=== PATIENT | male | born 1955 | race African-American/Black ===

== ENCOUNTER 2016-10-08 08:06 | Emergency (ER) | payer OTHER ==
[~2016-10-08] VITALS: Ht 182.9 cm; Wt 81.6 kg
[~2016-10-08 08:06] MED LIST: ALBUTEROL2.5 MG/3 M INH; AMLODIPINE BESY10 MG ORAL; CENTRUM SILVER1 EAC2 PO; DOCUSATE SODIU100 M2 ORAL; ELIQUIS5 MG PO; FLOVENT2 PUFF1 INH; HYDROCHLOROTHIA25 MG ORAL; LASIX40 MG ORAL; LISINOPRIL20 MG ORAL; PLAQUENIL200 MG ORAL; PROCARDIA XL60 MG ORAL
[2016-10-08] MEDS ORDERED: METOPROLOL SUCC50 MG ORAL (09:07)
[2016-10-08] MEDS ORDERED: TAMSULOSIN HCL0.4 MG ORAL (09:07)
[2016-10-08] MEDS ORDERED: LASIX20 M1 ORAL (09:07)
[2016-10-08] MEDS ORDERED: LISINOPRIL10 MG ORAL (09:07)
[2016-10-08] MEDS ORDERED: DuoNeb 0.5-3(2.5)mg/3ml neb HHN ONE (09:15)
[2016-10-08] MEDS ORDERED: Nitroglycerin Subl 0.4mg tab (Bottle Of 25) SL ONE (09:15)
[2016-10-08 09:41] VITALS: BP 135/89
[2016-10-08 09:50] LABS: BASOPHILS % (AUTO) 0.6 % (0.0-2.0); EOSINOPHILS % (AUTO) 2.5 % (0.0-3.0); LYMPHOCYTES % (AUTO) 16.7 % (20.0-45.0); MEAN CORPUSCULAR HEMOGLOBIN 34.8 PG (27.0-31.0); MEAN CORPUSCULAR HGB CONC 32.3 G/DL (32.0-36.0); MEAN CORPUSCULAR VOLUME 108 FL (80-99); MEAN PLATELET VOLUME 6.8 FL (6.5-10.1); MONOCYTES % (AUTO) 9.9 % (1.0-10.0); NEUTROPHILS % (AUTO) 70.3 % (45.0-75.0); PLATELET COUNT 192 K/UL (150-450); RED BLOOD COUNT 4.65 M/UL (4.70-6.10); RED CELL DISTRIBUTION WIDTH 12.7 % (11.6-14.8); WHITE BLOOD COUNT 8.1 K/UL (4.8-10.8)
[2016-10-08 10:03] LABS: ALANINE AMINOTRANSFERASE 71 U/L (3-41); ALBUMIN/GLOBULIN RATIO 1.3 (1.0-2.7); ANION GAP 16 (5-15); ASPARTATE AMINO TRANSFERASE 81 U/L (5-40); CALCIUM 9.8 mg/dL (8.6-10.2); CARBON DIOXIDE 24 mEQ/L (20-30); CHLORIDE 101 mEQ/L (98-107); CREATININE 1.2 mg/dL (0.7-1.2); GLOMERULAR FILTRATION RATE > 60 mL/min (>60); HEMOLYSIS 7; POTASSIUM 3.8 mEQ/L (3.4-4.9); SODIUM 141 mEQ/L (135-145); TOTAL PROTEIN 6.9 g/dL (6.6-8.7); TROPONIN I < 0.30 ng/mL (<=0.30)
[2016-10-08 10:07] LABS: APPEARANCE,URINE CLEAR; KETONES,URINE NEGATIVE (NEGATIVE); LEUKOCYTE ESTERASE ,URINE NEGATIVE (NEGATIVE); NITRITE,URINE NEGATIVE (NEGATIVE); PH,URINE 5 (4.5-8.0); PROTEIN,URINE NEGATIVE (NEGATIVE); UROBILINOGEN,URINE NORMAL MG/DL (0.0-1.0)
[2016-10-08 10:09] LABS: RBC,URINE 0-2 /HPF (0 - 0); SQUAMOUS EPITHELIAL CELL,UR OCCASIONAL /LPF (NONE/OCC); WBC,URINE 0-2 /HPF (0 - 0)
[2016-10-08 10:10] LABS: BACTERIA,URINE OCCASIONAL /HPF
--- NOTE | 2016-10-08 10:32 | Emergency Room Report ---
History of Present Illness General Chief Complaint: Dyspnea/Respdistress Source: Patient Present Illness HPI Patient is a 61-year-old male who presented for increased shortness of breath. The patient prior history of congestive heart failure he is currently taking Lasix as well as hydrochlorothiazide. He is taking Elliquis for anticoagulation. The patient had increased difficulty with exertion. He reported having increased shortness of breath when climbing up stairs as well as with supine position. Patient stated that he needed to sleep upright. The patient is a former smoker he stated he quit approximately 8 or 9 months ago. He denies any fever. Allergies: Coded Allergies: No Known Allergies (Unverified , 07/15/16) Patient History Past Medical History: see triage record Reviewed Nursing Documentation: PMH: Agreed, PSxH: Agreed Nursing Documentation-PMH Past Medical History: No History, Except For Hx Cardiac Problems: Yes Hx Hypertension: Yes Hx Pacemaker: No Hx Asthma: Yes Hx COPD: No Hx Cancer: No Hx Gastrointestinal Problems: No Hx Neurological Problems: No Review of Systems All Other Systems: negative except mentioned in HPI Physical Exam Vital Signs Date Time Temp Pulse Resp B/P Pulse Ox O2 Delivery O2 Flow Rate FiO2 10/08/16 08:27 93 18 135/102 100 Room Air 10/08/16 09:24 21 Sp02 EP Interpretation: reviewed, normal General Appearance: normal inspection, well appearing, no apparent distress, alert Head: atraumatic ENT: normal ENT inspection, hearing grossly normal, normal voice Neck: normal inspection, full range of motion, supple, no bony tend Respiratory: normal inspection, lungs clear, normal breath sounds, no respiratory distress, no retraction, no wheezing Cardiovascular #1: regular rate, rhythm, no edema Gastrointestinal: normal inspection, normal bowel sounds, non tender, soft, no guarding, no hernia Genitourinary: no CVA tenderness Musculoskeletal: normal inspection, back normal, normal range of motion Neurologic: normal inspection, alert, oriented x3, responsive, 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 Because of complexity of patient' s case laboratory testing and imaging studies were ordered. EKG interpreted by me showed atrial fibrillation with a rate of [address] changes noted. Patient was given IV Lasix. He was given a breathing treatment with albuterol and Atrovent. The patient appears to have some worsening of his congestive heart failure. Laboratory testing was notable for a markedly elevated BNP, troponin negative. The patient and significant other were advised risk benefits alternatives of leaving AGAINST MEDICAL ADVICE and he indicated understanding and all questions are answered patient still continued want to leave and signed AGAINST MEDICAL ADVICE. Despite risks including but not limited to disability and worsening of current lifestyle. Patient was advised to return at anytime.The patient appears to have mental capacity to go AGAINST MEDICAL ADVICE Labs Test 10/08/16 09:30 White Blood Count 8.1 K/UL (4.8-10.8) Red Blood Count 4.65 M/UL (4.70-6.10) Hemoglobin 16.2 G/DL (14.2-18.0) Hematocrit 50.1 % (42.0-52.0) Mean Corpuscular Volume 108 FL (80-99) Mean Corpuscular Hemoglobin 34.8 PG (27.0-31.0) Mean Corpuscular Hemoglobin Concent 32.3 G/DL (32.0-36.0) Red Cell Distribution Width 12.7 % (11.6-14.8) Platelet Count 192 K/UL (150-450) Mean Platelet Volume 6.8 FL (6.5-10.1) Neutrophils (%) (Auto) 70.3 % (45.0-75.0) Lymphocytes (%) (Auto) 16.7 % (20.0-45.0) Monocytes (%) (Auto) 9.9 % (1.0-10.0) Eosinophils (%) (Auto) 2.5 % (0.0-3.0) Basophils (%) (Auto) 0.6 % (0.0-2.0) Urine Color Pale yellow Urine Appearance Clear Urine pH 5 (4.5-8.0) Urine Specific [place] 1.010 (1.005-1.035) Urine Protein Negative (NEGATIVE) Urine Glucose (UA) Negative (NEGATIVE) Urine Ketones Negative (NEGATIVE) Urine Occult Blood Negative (NEGATIVE) Urine Nitrite Negative (NEGATIVE) Urine Bilirubin Negative (NEGATIVE) Urine Urobilinogen Normal MG/DL (0.0-1.0) Urine Leukocyte Esterase Negative (NEGATIVE) Urine RBC 0-2 /HPF (0 - 0) Urine WBC 0-2 /HPF (0 - 0) Urine Squamous Epithelial Cells Occasional /LPF Urine Bacteria Occasional /HPF (NONE) Sodium Level 141 mEQ/L (135-145) Potassium Level 3.8 mEQ/L (3.4-4.9) Chloride Level 101 mEQ/L (98-107) Carbon Dioxide Level 24 mEQ/L (20-30) Anion Gap 16 (5-15) Blood Urea Nitrogen 17 mg/dL (7-23) Creatinine 1.2 mg/dL (0.7-1.2) Estimat Glomerular Filtration Rate > 60 mL/min (>60) Glucose Level 94 mg/dL (74-106) Calcium Level 9.8 mg/dL (8.6-10.2) Total Bilirubin 0.9 mg/dL (0.0-1.2) Aspartate Amino Transf (AST/SGOT) 81 U/L (5-40) Alanine Aminotransferase (ALT/SGPT) 71 U/L (3-41) Alkaline Phosphatase 65 U/L (40-129) Troponin I < 0.30 ng/mL (<=0.30) Pro-B-Type Natriuretic Peptide 3436 pg/mL (0-125) Total Protein 6.9 g/dL (6.6-8.7) Albumin 3.9 g/dL (3.5-5.2) Globulin 3.0 g/dL Albumin/Globulin Ratio 1.3 (1.0-2.7) EKG Diagnostic Results Rate: other - afib nvr pvc 97 Rhythm Strip Diag. Results EP Interpretation: yes Rhythm: other - atrial fibrillation, 97 Chest X-Ray Diagnostic Results EP Interpretation: No Findings: no consolidation, no effusion, no pneumothorax Number of Views: 1 Last Vital Signs Date Time Temp Pulse Resp B/P Pulse Ox O2 Delivery O2 Flow Rate FiO2 10/08/16 09:41 87 19 135/89 100 Room Air 21 Status: unchanged Disposition: AGAINST MEDICAL ADVICE Condition: Serious Referrals: NON PHYSICIAN (PCP) Dino Almanzar Oct 08, 2016 10:32
--- NOTE | 2016-10-08 11:29 | Diagnostic Imaging Report ---
Indications: Shortness of breath and cough Technique: Portable AP chest Findings: Comparison: 07/16/16 Cardiac silhouette remains enlarged. Pulmonary vasculature remains within normal limits. Lungs and pleura remain clear. IMPRESSION: No evidence of acute disease, unchanged Stable chronic changes as described
[2016-10-08 12:55] VITALS: BP 130/80
--- NOTE | 2016-11-06 15:41 | Cardiology Report ---
APPROVED REPORT EKG Measurement Heart [id number] Atrial fibrillation Moderate voltage criteria for LVH, may be normal variant Prolonged QT Abnormal ECG
== END 2016-10-08 12:59 | disposition left against medical advice (07) ==
LOC: EMR 09:04
DX: J44.9 Chronic obstructive pulmonary disease, unspecified (principal); I50.9 Heart failure, unspecified; I10 Essential (primary) hypertension; J45.909 Unspecified asthma, uncomplicated; Z79.01 Long term (current) use of anticoagulants; Z87.891 Personal history of nicotine dependence
CPT/HCPCS: 36415; 71010; 80053; 81001; 83880; 84484; 85025; 93005; 94640; 94664; 99283; J7620

== ENCOUNTER 2016-12-31 09:37 | Inpatient (IN) | payer OTHER ==
[~2016-12-31] VITALS: Ht 175.3 cm; Wt 82.6 kg
[2016-12-31] VITALS (7 sets, daily range): BP systolic 109–143; BP diastolic 62–90
[~2016-12-31 09:37] MED LIST changes: +LASIX20 M1 ORAL; +LISINOPRIL10 MG ORAL; +METOPROLOL SUCC50 MG ORAL; +TAMSULOSIN HCL0.4 MG ORAL
[2016-12-31] MEDS ORDERED: Albuterol ud Inhalation ONE ×2 (09:55)
[2016-12-31] MEDS ORDERED: Ipratropium 0.02% Inh Soln 2.5ml UD ONE (09:55)
[2016-12-31] MEDS: Albuterol ud Inhalation HHN SCH ×3 (10:00→13:43)
[2016-12-31] MEDS ORDERED: Solu-MEDROL 125mg Inj IVP ONE (10:00)
[2016-12-31] MEDS ORDERED: Ipratropium 0.02% Inh Soln 2.5ml UD HHN ONE (10:00)
[2016-12-31 10:13] LABS: BASOPHILS % (AUTO) 1.8 % (0.0-2.0); EOSINOPHILS % (AUTO) 2.1 % (0.0-3.0); LYMPHOCYTES % (AUTO) 25.3 % (20.0-45.0); MEAN CORPUSCULAR HEMOGLOBIN 35.3 PG (27.0-31.0); MEAN CORPUSCULAR VOLUME 107 FL (80-99); MEAN PLATELET VOLUME 8.2 FL (6.5-10.1); MONOCYTES % (AUTO) 9.4 % (1.0-10.0); NEUTROPHILS % (AUTO) 61.3 % (45.0-75.0); PLATELET COUNT 163 K/UL (150-450); RED CELL DISTRIBUTION WIDTH 12.2 % (11.6-14.8); WHITE BLOOD COUNT 6.6 K/UL (4.8-10.8)
[2016-12-31 10:19] LABS: INR 1.3 (0.9-1.1); PROTHROMBIN TIME 13.7 SEC (9.30-11.50)
[2016-12-31 10:25] LABS: ALANINE AMINOTRANSFERASE 39 U/L (3-41); ALBUMIN/GLOBULIN RATIO 1.8 (1.0-2.7); ANION GAP 15 (5-15); ASPARTATE AMINO TRANSFERASE 44 U/L (5-40); CALCIUM 9.7 mg/dL (8.6-10.2); CARBON DIOXIDE 27 mEQ/L (20-30); CHLORIDE 100 mEQ/L (98-107); CREATININE 1.2 mg/dL (0.7-1.2); GLOMERULAR FILTRATION RATE > 60 mL/min (>60); HEMOLYSIS 16; POTASSIUM 4.3 mEQ/L (3.4-4.9); SODIUM 142 mEQ/L (135-145); TOTAL PROTEIN 6.8 g/dL (6.6-8.7)
[2016-12-31 10:28] LABS: TROPONIN I < 0.30 ng/mL (<=0.30)
[2016-12-31 10:46] LABS: BILIRUBIN,DIRECT 0.4 mg/dL (0.1-0.3)
[2016-12-31] MEDS ORDERED: LISINOPRIL20 MG ORAL (10:46)
[2016-12-31] MEDS ORDERED: ZANTAC150 MG ORAL (10:46)
[2016-12-31 11:20] LABS: APPEARANCE,URINE CLEAR; KETONES,URINE NEGATIVE (NEGATIVE); LEUKOCYTE ESTERASE ,URINE NEGATIVE (NEGATIVE); NITRITE,URINE NEGATIVE (NEGATIVE); PH,URINE 6 (4.5-8.0); PROTEIN,URINE NEGATIVE (NEGATIVE); UROBILINOGEN,URINE NORMAL MG/DL (0.0-1.0)
--- NOTE | 2016-12-31 12:11 | Diagnostic Imaging Report ---
Indications: Shortness of breath Technique: Portable AP chest Findings: Comparison: 10/08/16 Cardiac silhouette remains enlarged. Pulmonary vasculature remains within normal limits. Lungs and pleura remain clear. Mild calcification of the aortic arch is unchanged. IMPRESSION: No evidence of acute disease, unchanged Stable cardiomegaly
[2016-12-31] MEDS ORDERED: Morphine Sulfate 2mg/ml Inj IVP PRN (13:45)
[2016-12-31] MEDS ORDERED: Promethazine/Codeine 5ml UD ORAL PRN (13:45)
[2016-12-31] MEDS ORDERED: LORazepam Inj 2mg/ml 1ml IV PRN (13:45)
[2016-12-31] MEDS ORDERED: Nitroglycerin Subl 0.4mg tab (Bottle Of 25) SL PRN (13:45)
--- NOTE | 2016-12-31 14:47 | Emergency Room Report ---
History of Present Illness General Chief Complaint: Dyspnea/Respdistress Source: Patient Present Illness HPI The patient presents with severe dyspnea. It's been worsening over the last 3 weeks. Denies any productive cough fever. He has 2 problems CHF and COPD. He' s not sure which one is causing the problem at this time. He does have edema. He's been taking Lasix. He denies chest pain or abdominal pain. Supple vomiting and is moving his bowels without trouble. There's no dysuria. No rashes. Is not taking prednisone at this time. This is not his worst attack that is one of the most severe. He is on home oxygen and does not have a nebulizer. She's been using an inhaler but ran out and is it's not been helping. Allergies: Coded Allergies: No Known Allergies (Unverified , 07/15/16) Patient History Past Medical History: see triage record Social History: Reports: smoking - prior Social History Narrative at home Reviewed Nursing Documentation: PMH: Agreed, PSxH: Agreed Nursing Documentation-PMH Past Medical History: No History, Except For Hx Cardiac Problems: Yes Hx Hypertension: Yes Hx Pacemaker: No Hx Asthma: Yes Hx COPD: No Hx Cancer: No Hx Gastrointestinal Problems: No Hx Neurological Problems: No Review of Systems All Other Systems: negative except mentioned in HPI Physical Exam Vital Signs Date Time Temp Pulse Resp B/P Pulse Ox O2 Delivery O2 Flow Rate FiO2 12/31/16 09:41 97.2 77 24 156/111 96 Room Air 12/31/16 10:00 21 Sp02 EP Interpretation: reviewed, normal General Appearance: normal inspection, GCS 15, non-toxic, mild distress - when ambulating to [facility] - audible wheezes at bedside Head: normocephalic Eyes: bilateral eye PERRL, bilateral eye normal inspection ENT: moist mucus membranes Neck: supple Respiratory: accessory muscle use - minimal, wheezing, expiration, inspiration Cardiovascular #1: regular rate, rhythm, edema - trace Cardiovascular #2: 2+ radial (R) Gastrointestinal: normal inspection, normal bowel sounds, non tender, no mass, non-distended Musculoskeletal: back normal, gait/station normal, normal range of motion Neurologic: alert, oriented x3, grossly normal Psychiatric: mood/affect normal Skin: normal inspection, warm/dry Medical Decision Making Diagnostic Impression: Primary Impression: COPD exacerbation ER Course Patient presents with severe dyspnea on exertion. Differential includes COPD exacerbation, pneumonia, bronchitis, acute myocardial infarction, acute coronary syndrome amongst others. Emergent evaluation is undertaken with labs, EKG, chest x-ray. The patient will be treated with slight Medrol, breathing treatments and as he has a history of congestive heart failure will hold off on aggressive hydration and moment. Laboratory is remarkable for EKG with a fib. He has polycythemia. Mild elevation of LFTs and BNP. Improved but still extreme dyspnea on exertion. Admit tele Dr. Scruggs. Laboratory Tests Test 12/31/16 09:45 12/31/16 09:55 12/31/16 09:58 Urine Color Pale yellow Urine Appearance Clear Urine pH 6 (4.5-8.0) Urine Specific [place] 1.010 (1.005-1.035) Urine Protein Negative (NEGATIVE) Urine Glucose (UA) Negative (NEGATIVE) Urine Ketones Negative (NEGATIVE) Urine Occult Blood Negative (NEGATIVE) Urine Nitrite Negative (NEGATIVE) Urine Bilirubin Negative (NEGATIVE) Urine Urobilinogen Normal MG/DL (0.0-1.0) Urine Leukocyte Esterase Negative (NEGATIVE) Troponin I < 0.30 ng/mL (<=0.30) White Blood Count 6.6 K/UL (4.8-10.8) Red Blood Count 5.20 M/UL (4.70-6.10) Hemoglobin 18.3 G/DL (14.2-18.0) *H Hematocrit 55.7 % (42.0-52.0) H Mean Corpuscular Volume 107 FL (80-99) H Mean Corpuscular Hemoglobin 35.3 PG (27.0-31.0) H Mean Corpuscular Hemoglobin Concent 33.0 G/DL (32.0-36.0) Red Cell Distribution Width 12.2 % (11.6-14.8) Platelet Count 163 K/UL (150-450) Mean Platelet Volume 8.2 FL (6.5-10.1) Neutrophils (%) (Auto) 61.3 % (45.0-75.0) Lymphocytes (%) (Auto) 25.3 % (20.0-45.0) Monocytes (%) (Auto) 9.4 % (1.0-10.0) Eosinophils (%) (Auto) 2.1 % (0.0-3.0) Basophils (%) (Auto) 1.8 % (0.0-2.0) Prothrombin Time 13.7 SEC (9.30-11.50) H Prothrombin Time INR 1.3 (0.9-1.1) H PTT 31 SEC (23-33) Sodium Level 142 mEQ/L (135-145) Potassium Level 4.3 mEQ/L (3.4-4.9) Chloride Level 100 mEQ/L (98-107) Carbon Dioxide Level 27 mEQ/L (20-30) Anion Gap 15 (5-15) Blood Urea Nitrogen 19 mg/dL (7-23) Creatinine 1.2 mg/dL (0.7-1.2) Estimate Glomerular Filtration Rate > 60 mL/min (>60) Glucose Level 83 mg/dL (74-106) Lactic Acid Level 1.60 mmol/L (0.66-2.22) Calcium Level 9.7 mg/dL (8.6-10.2) Total Bilirubin 1.3 mg/dL (0.0-1.2) H Direct Bilirubin 0.4 mg/dL (0.1-0.3) H Aspartate Amino Transferase (AST) 44 U/L (5-40) H Alanine Aminotransferase (ALT) 39 U/L (3-41) Alkaline Phosphatase 66 U/L (40-129) Total Creatine Kinase 181 U/L (38-174) H Pro-B-Type Natriuretic Peptide 6690 pg/mL (0-125) H Total Protein 6.8 g/dL (6.6-8.7) Albumin 4.4 g/dL (3.5-5.2) Globulin 2.4 g/dL Albumin/Globulin Ratio 1.8 (1.0-2.7) EKG Diagnostic Results Rate: normal Rhythm: other - a fib with aberancy Rhythm Strip Diag. Results EP Interpretation: yes Rhythm: other - a f Chest X-Ray Diagnostic Results EP Interpretation: Yes Findings: no consolidation, no effusion, no pneumothorax, other - cardiomegally Number of Views: 1 Last Vital Signs Date Time Temp Pulse Resp B/P Pulse Ox O2 Delivery O2 Flow Rate FiO2 12/31/16 13:45 99 12/31/16 13:43 93 18 96 Room Air 12/31/16 11:51 97.7 143/70 Status: improved Disposition: ADMITTED INPATIENT Condition: Serious Referrals: [facility],REFERRING (PCP) Broderick Reyes M.D. Dec 31, 2016 14:47
[2016-12-31] MEDS: Solu-MEDROL 125mg Inj IV SCH (17:05)
[2016-12-31] MEDS: Piperacillin/Tazobactam 3.375 GM in NS 110 ML IVPB SCH (17:05)
[2016-12-31] MEDS: Lisinopril 20mg tab ORAL SCH (17:06)
[2016-12-31] MEDS: Eliquis 2.5mg tablet ORAL SCH (17:06)
[2016-12-31] MEDS: NovoLOG Insulin Flexpen SUBQ SCH ×2 (17:13→21:11)
--- NOTE | 2016-12-31 19:38 | History and Physical ---
History of Present Illness General Date patient seen: Dec 31, 2016 Reason for Hospitalization: Dyspnea/Respdistress Present Illness HPI 61 year old male with hx of COPD, afib, cardiomegaly presented to ER with CC of Shortness of breath worse when laying down. Pt has some dry cough. No fever or chill or flu symptoms recently. Allergies: Coded Allergies: No Known Allergies (Unverified , 07/15/16) Medication History Scheduled Amlodipine Besylate* (Amlodipine Besylate*), 10 MG ORAL DAILY, (Reported) Apixaban (Eliquis), 5 MG PO EVERY 12 HOURS Docusate Sodium (Docusate Sodium), 250 MG ORAL TWICE A DAY, (Reported) Fluticasone Propionate (Flovent Hfa), 2 PUFFS INH BID, (Reported) Furosemide* (Lasix*), 40 MG ORAL DAILY Furosemide* (Lasix*), 20 MG ORAL DAILY, (Reported) Hydrochlorothiazide* (Hydrochlorothiazide*), 25 MG ORAL DAILY, (Reported) Hydroxychloroquine Sulfate* (Plaquenil*), 200 MG ORAL TWICE A DAY, (Reported) Lisinopril (Lisinopril*), 20 MG ORAL DAILY Lisinopril (Lisinopril*), 10 MG ORAL DAILY, (Reported) Ranitidine Hcl* (Zantac*), 150 MG ORAL TWICE A DAY, (Reported) Tamsulosin Hcl (Tamsulosin Hcl*), 0.4 MG ORAL BEDTIME, (Reported) Scheduled PRN Albuterol Sulfate* (Albuterol Sulfate Hhn*), 3 ML INH Q6H PRN for Shortness of Breath, (Reported) Discontinued Medications Lisinopril* (Lisinopril*), 10 MG ORAL DAILY, (Reported) Discontinued Reason: Therapy completed Metoprolol Succinate* (Metoprolol Succinate*), 25 MG ORAL DAILY, (Reported) Discontinued Reason: Pt stopped taking med Multivitamin W-Minerals/Lutein (Centrum Silver Ultra Men's Tab), 1 EACH PO, ( Reported) Discontinued Reason: Therapy completed Nifedipine (Procardia Xl), 60 MG ORAL DAILY, (Reported) Discontinued Reason: Pt stopped taking med Patient History Healthcare decision maker Resuscitation status Advanced Directive on File No Past Medical/Surgical History Past Medical/Surgical History: (1) COPD exacerbation (2) Atrial fibrillation (3) Acute respiratory failure (4) History of smoking (5) HTN (hypertension) Review of Systems All Other Systems: negative except mentioned in HPI Physical Exam General Appearance: WD/WN, no apparent distress Lines, tubes and drains: peripheral HEENT: normocephalic Neck: non-tender, normal alignment Respiratory/Chest: chest wall non-tender, lungs clear Breasts: no masses Cardiovascular/Chest: normal peripheral pulses Abdomen: normal bowel sounds, non tender Genitourinary/Rectal: normal genital exam, normal rectal exam Extremities: normal range of motion, non-tender Skin Exam: normal pigmentation 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 Last 24 Hour Vital Signs Date Time Temp Pulse Resp B/P Pulse Ox O2 Delivery O2 Flow Rate FiO2 12/31/16 17:06 127/86 12/31/16 16:40 93 12/31/16 16:20 95.7 81 22 127/86 93 Room Air 12/31/16 16:07 94 18 109/60 99 Room Air 12/31/16 15:00 96.8 96 21 116/75 99 Room Air 12/31/16 14:00 95 22 109/62 95 Room Air 12/31/16 13:45 99 12/31/16 13:43 93 18 96 Room Air 21 12/31/16 11:51 97.7 91 17 143/70 96 Room Air 12/31/16 11:02 95 20 Room Air 99 12/31/16 11:01 97.0 95 20 122/89 96 Room Air 12/31/16 10:21 86 18 99 Room Air 99 12/31/16 10:20 86 18 100 Room Air 21 12/31/16 10:20 21 12/31/16 10:13 90 20 132/90 99 Room Air 12/31/16 10:13 90 24 Room Air 99 12/31/16 10:00 80 22 Room Air 21 12/31/16 10:00 80 22 96 Room Air 21 12/31/16 09:41 97.2 77 24 156/111 96 Room Air Laboratory Tests Test 12/31/16 09:45 12/31/16 09:55 12/31/16 09:58 Urine Color Pale yellow Urine Appearance Clear Urine pH 6 (4.5-8.0) Urine Specific [place] 1.010 (1.005-1.035) Urine Protein Negative (NEGATIVE) Urine Glucose (UA) Negative (NEGATIVE) Urine Ketones Negative (NEGATIVE) Urine Occult Blood Negative (NEGATIVE) Urine Nitrite Negative (NEGATIVE) Urine Bilirubin Negative (NEGATIVE) Urine Urobilinogen Normal MG/DL (0.0-1.0) Urine Leukocyte Esterase Negative (NEGATIVE) Troponin I < 0.30 ng/mL (<=0.30) White Blood Count 6.6 K/UL (4.8-10.8) Red Blood Count 5.20 M/UL (4.70-6.10) Hemoglobin 18.3 G/DL (14.2-18.0) *H Hematocrit 55.7 % (42.0-52.0) H Mean Corpuscular Volume 107 FL (80-99) H Mean Corpuscular Hemoglobin 35.3 PG (27.0-31.0) H Mean Corpuscular Hemoglobin Concent 33.0 G/DL (32.0-36.0) Red Cell Distribution Width 12.2 % (11.6-14.8) Platelet Count 163 K/UL (150-450) Mean Platelet Volume 8.2 FL (6.5-10.1) Neutrophils (%) (Auto) 61.3 % (45.0-75.0) Lymphocytes (%) (Auto) 25.3 % (20.0-45.0) Monocytes (%) (Auto) 9.4 % (1.0-10.0) Eosinophils (%) (Auto) 2.1 % (0.0-3.0) Basophils (%) (Auto) 1.8 % (0.0-2.0) Prothrombin Time 13.7 SEC (9.30-11.50) H Prothromb Time International Ratio 1.3 (0.9-1.1) H Activated Partial Thromboplast Time 31 SEC (23-33) Sodium Level 142 mEQ/L (135-145) Potassium Level 4.3 mEQ/L (3.4-4.9) Chloride Level 100 mEQ/L (98-107) Carbon Dioxide Level 27 mEQ/L (20-30) Anion Gap 15 (5-15) Blood Urea Nitrogen 19 mg/dL (7-23) Creatinine 1.2 mg/dL (0.7-1.2) Estimat Glomerular Filtration Rate > 60 mL/min (>60) Glucose Level 83 mg/dL (74-106) Lactic Acid Level 1.60 mmol/L (0.66-2.22) Calcium Level 9.7 mg/dL (8.6-10.2) Total Bilirubin 1.3 mg/dL (0.0-1.2) H Direct Bilirubin 0.4 mg/dL (0.1-0.3) H Aspartate Amino Transf (AST/SGOT) 44 U/L (5-40) H Alanine Aminotransferase (ALT/SGPT) 39 U/L (3-41) Alkaline Phosphatase 66 U/L (40-129) Total Creatine Kinase 181 U/L (38-174) H Pro-B-Type Natriuretic Peptide 6690 pg/mL (0-125) H Total Protein 6.8 g/dL (6.6-8.7) Albumin 4.4 g/dL (3.5-5.2) Globulin 2.4 g/dL Albumin/Globulin Ratio 1.8 (1.0-2.7) Height (Feet): 5 Height (Inches): 9.00 Weight (Pounds): 182 Medications Current Medications Medications (Trade) Dose Ordered Sig/Marlyn Route PRN Reason Start Time Stop Time Status Last Admin Dose Admin Albuterol/ Ipratropium (DuoNeb 0.5-3(2.5)mg/3ml) 3 ml EVERY 4 HOURS PRN HHN dyspnea 12/31/16 13:45 01/05/17 13:44 Amlodipine Besylate (Norvasc) 10 mg DAILY ORAL 01/01/17 09:00 01/31/17 08:59 Apixaban (Eliquis) 5 mg BID ORAL 12/31/16 18:00 01/30/17 17:59 12/31/16 17:06 Dextrose (Dextrose 50%) STAT PRN IV Hypoglycemia 12/31/16 13:45 01/30/17 13:44 Furosemide (Lasix) 40 mg DAILY ORAL 01/01/17 09:00 01/31/17 08:59 Insulin Aspart (NovoLOG) BEFORE MEALS AND HS SUBQ 12/31/16 17:00 01/30/17 16:59 12/31/16 17:13 Lisinopril (Prinivil) 20 mg DAILY ORAL 12/31/16 16:00 01/30/17 15:59 12/31/16 17:06 Lorazepam (Ativan 2mg/ml 1ml) 0.5 mg Q4H PRN IV For Anxiety 12/31/16 13:45 01/07/17 13:44 Methylprednisolone Sodium Succinate (Solu-MEDROL) 60 mg EVERY 6 HOURS IV 12/31/16 18:00 01/30/17 17:59 12/31/16 17:05 Morphine Sulfate (Morphine Sulfate) 2 mg EVERY 4 HOURS PRN IVP severe pain 7-10 12/31/16 13:45 01/07/17 13:44 Nitroglycerin (Ntg) 0.4 mg Q5M X 3 DOSES PRN SL Prn Chest Pain 12/31/16 13:45 01/30/17 13:44 Ondansetron HCl (Zofran) 4 mg Q6H PRN IVP Nausea & Vomiting 12/31/16 13:45 01/30/17 13:44 Piperacillin Sod/ Tazobactam Sod/ Sodium Chloride (Zosyn/Sodium Chloride) 110 ml @ 27.5 mls/hr Q8H IVPB 12/31/16 18:00 01/07/17 17:59 12/31/16 17:05 Promethazine HCl/ Codeine (Phenergan with Codeine) 5 ml EVERY 6 HOURS PRN ORAL cough 12/31/16 13:45 01/30/17 13:44 Tamsulosin HCl (Flomax) 0.4 mg BEDTIME ORAL 12/31/16 21:00 01/30/17 20:59 Temazepam (Restoril) 15 mg HSPRN PRN ORAL Insomnia 12/31/16 13:45 01/07/17 13:44 Theophylline 100 mg 100 mg EVERY 12 HOURS ORAL 12/31/16 21:00 01/30/17 20:59 Assessment/Plan Problem List: (1) Acute respiratory failure ICD Codes: J96.00 - Acute respiratory failure, unspecified whether with hypoxia or hypercapnia SNOMED: 82054606 (2) Acute on chronic diastolic heart failure secondary to hypertrophic cardiomyopathy ICD Codes: I50.33 - Acute on chronic diastolic (congestive) heart failure; I42.2 - Other hypertrophic cardiomyopathy SNOMED: 565978953, 679686634 (3) HTN (hypertension) ICD Codes: I10 - Essential (primary) hypertension SNOMED: 25059124 (4) Atrial fibrillation ICD Codes: I48.91 - Unspecified atrial fibrillation SNOMED: 91077762 (5) COPD (chronic obstructive pulmonary disease) ICD Codes: J44.9 - Chronic obstructive pulmonary disease, unspecified SNOMED: 43577449 Assessment/Plan respiratory treatment echo adjust cardiac meds cardio consult check sputum NANO POPE Dec 31, 2016 19:38
[2016-12-31] MEDS: Theophylline ER 100mg ORAL SCH (21:09)
[2016-12-31] MEDS: Tamsulosin 0.4mg cap ORAL SCH (21:09)
[2016-12-31] MEDS: DuoNeb 0.5-3(2.5)mg/3ml neb HHN PRN (21:39)
[2017-01-01 00:18] VITALS: BP 103/55
[2017-01-01] MEDS: Piperacillin/Tazobactam 3.375 GM in NS 110 ML IVPB SCH ×2 (01:33→09:00)
[2017-01-01 04:00] VITALS: BP 111/69
[2017-01-01] MEDS: Solu-MEDROL 125mg Inj IV SCH ×3 (06:35→11:23)
[2017-01-01] MEDS: NovoLOG Insulin Flexpen SUBQ SCH ×4 (06:37→21:11)
[2017-01-01 08:20] VITALS: BP 123/81
[2017-01-01] MEDS: Eliquis 2.5mg tablet ORAL SCH ×2 (08:55→17:13)
[2017-01-01] MEDS: Lisinopril 20mg tab ORAL SCH (08:56)
[2017-01-01] MEDS: Theophylline ER 100mg ORAL SCH ×2 (08:56→21:05)
[2017-01-01] MEDS ORDERED: Furosemide 40mg tab ORAL SCH ×2 (09:00→12:00)
--- NOTE | 2017-01-01 11:14 | Cardiology Progress Note ---
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 keep on eliquis Objective Last 24 Hour Vital Signs Date Time Temp Pulse Resp B/P Pulse Ox O2 Delivery O2 Flow Rate FiO2 01/01/17 08:56 123/81 01/01/17 08:55 109 123/81 01/01/17 08:20 97.0 109 18 123/81 98 Room Air 01/01/17 08:00 129 01/01/17 07:46 85 20 Room Air 01/01/17 04:00 86 01/01/17 04:00 97.0 70 20 111/69 94 Room Air 01/01/17 00:18 97.0 71 20 103/55 94 Room Air 01/01/17 00:00 83 12/31/16 21:43 69 18 98 Room Air 12/31/16 21:43 21 12/31/16 21:43 77 18 97 Room Air 21 12/31/16 20:26 107 20 Room Air 99 12/31/16 20:00 97.0 78 20 123/78 94 Room Air 12/31/16 17:06 127/86 12/31/16 16:40 93 12/31/16 16:20 95.7 81 22 127/86 93 Room Air 12/31/16 16:07 94 18 109/60 99 Room Air 12/31/16 15:00 96.8 96 21 116/75 99 Room Air 12/31/16 14:00 95 22 109/62 95 Room Air 12/31/16 13:45 99 12/31/16 13:43 93 18 96 Room Air 21 12/31/16 11:51 97.7 91 17 143/70 96 Room Air Intake and Output 12/31/16 01/01/17 19:00 07:00 Intake Total 387.5 ml 110.0 ml Output Total 1550 ml Balance 387.5 ml -1440.0 ml Intake Oral 360 ml IV Total 27.5 ml 110.0 ml Output Urine Total 1550 ml # Voids 2 2 JUDE NAVARRETE Jan 01, 2017 11:14
[2017-01-01 11:47] VITALS: BP 106/73
--- NOTE | 2017-01-01 12:54 | Pulmonology Progress Note ---
Assessment/Plan Problems: (1) Acute respiratory failure (2) Acute on chronic diastolic heart failure secondary to hypertrophic cardiomyopathy (3) HTN (hypertension) (4) Atrial fibrillation (5) COPD (chronic obstructive pulmonary disease) Assessment/Plan improving dc steroids and abx titrate cardiac meds f/u echo continue Apixiban Subjective ROS Limited/Unobtainable: No Interval Events: feeling better Allergies: Coded Allergies: No Known Allergies (Unverified , 07/15/16) Objective Last 24 Hour Vital Signs Date Time Temp Pulse Resp B/P Pulse Ox O2 Delivery O2 Flow Rate FiO2 01/01/17 11:47 97.2 104 18 106/73 98 Room Air 01/01/17 08:56 123/81 01/01/17 08:55 109 123/81 01/01/17 08:20 97.0 109 18 123/81 98 Room Air 01/01/17 08:00 129 01/01/17 07:46 85 20 Room Air 01/01/17 04:00 86 01/01/17 04:00 97.0 70 20 111/69 94 Room Air 01/01/17 00:18 97.0 71 20 103/55 94 Room Air 01/01/17 00:00 83 12/31/16 21:43 69 18 98 Room Air 12/31/16 21:43 21 12/31/16 21:43 77 18 97 Room Air 21 12/31/16 20:26 107 20 Room Air 99 12/31/16 20:00 97.0 78 20 123/78 94 Room Air 12/31/16 17:06 127/86 12/31/16 16:40 93 12/31/16 16:20 95.7 81 22 127/86 93 Room Air 12/31/16 16:07 94 18 109/60 99 Room Air 12/31/16 15:00 96.8 96 21 116/75 99 Room Air 12/31/16 14:00 95 22 109/62 95 Room Air 12/31/16 13:45 99 12/31/16 13:43 93 18 96 Room Air 21 Intake and Output 12/31/16 01/01/17 19:00 07:00 Intake Total 387.5 ml 110.0 ml Output Total 1550 ml Balance 387.5 ml -1440.0 ml Intake Oral 360 ml IV Total 27.5 ml 110.0 ml Output Urine Total 1550 ml # Voids 2 2 General Appearance: WD/WN HEENT: normocephalic, atraumatic Respiratory/Chest: chest wall non-tender, lungs clear Cardiovascular: normal peripheral pulses, regular rhythm Abdomen: normal bowel sounds, soft, non tender Extremities: no cyanosis 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 Current Medications Medications (Trade) Dose Ordered Sig/Marlyn Route PRN Reason Start Time Stop Time Status Last Admin Dose Admin Albuterol/ Ipratropium (DuoNeb 0.5-3(2.5)mg/3ml) 3 ml EVERY 4 HOURS PRN HHN dyspnea 12/31/16 13:45 01/05/17 13:44 12/31/16 21:39 Apixaban (Eliquis) 5 mg BID ORAL 12/31/16 18:00 01/30/17 17:59 01/01/17 08:55 Dextrose (Dextrose 50%) STAT PRN IV Hypoglycemia 12/31/16 13:45 01/30/17 13:44 Diltiazem HCl (Cardizem) 30 mg EVERY 8 HOURS ORAL 01/01/17 14:00 01/31/17 13:59 Furosemide (Lasix) 40 mg DAILY ORAL 01/02/17 09:00 02/01/17 08:59 Insulin Aspart (NovoLOG) BEFORE MEALS AND HS SUBQ 12/31/16 17:00 01/30/17 16:59 01/01/17 11:26 Lisinopril (Zestril) 10 mg DAILY ORAL 01/02/17 09:00 02/01/17 08:59 Lorazepam (Ativan 2mg/ml 1ml) 0.5 mg Q4H PRN IV For Anxiety 12/31/16 13:45 01/07/17 13:44 Methylprednisolone Sodium Succinate (Solu-MEDROL) 60 mg EVERY 6 HOURS IV 12/31/16 18:00 01/30/17 17:59 01/01/17 11:23 Morphine Sulfate (Morphine Sulfate) 2 mg EVERY 4 HOURS PRN IVP severe pain 7-12/31/16 13:45 01/07/17 13:44 Nitroglycerin (Ntg) 0.4 mg Q5M X 3 DOSES PRN SL Prn Chest Pain 12/31/16 13:45 01/30/17 13:44 Ondansetron HCl (Zofran) 4 mg Q6H PRN IVP Nausea & Vomiting 12/31/16 13:45 01/30/17 13:44 Piperacillin Sod/ Tazobactam Sod/ Sodium Chloride (Zosyn/Sodium Chloride) 110 ml @ 27.5 mls/hr Q8H IVPB 12/31/16 18:00 01/07/17 17:59 01/01/17 09:00 Promethazine HCl/ Codeine (Phenergan with Codeine) 5 ml EVERY 6 HOURS PRN ORAL cough 12/31/16 13:45 01/30/17 13:44 Tamsulosin HCl (Flomax) 0.4 mg BEDTIME ORAL 12/31/16 21:00 01/30/17 20:59 12/31/16 21:09 Temazepam (Restoril) 15 mg HSPRN PRN ORAL Insomnia 12/31/16 13:45 01/07/17 13:44 01/01/17 01:34 Theophylline 100 mg 100 mg EVERY 12 HOURS ORAL 12/31/16 21:00 01/30/17 20:59 01/01/17 08:56 NANO POPE Jan 01, 2017 12:54
[2017-01-01 15:42] VITALS: BP 134/90
--- NOTE | 2017-01-01 16:26 | Cardiology Report ---
APPROVED REPORT EXAM: Two-dimensional and M-mode echocardiogram with Doppler and color Doppler. INDICATION Atrial Flutter M-Mode DIMENSIONS IVSd1.3 (0.7-1.1cm)Left Atrium (MM)6.1 (1.6-4.0cm) LVDd5.4 (3.5-5.6cm)Aortic Root3.7 (2.0-3.7cm) PWd1.6 (0.7-1.1cm)Aortic Cusp Exc.2.1 (1.5-2.0cm) LVDs5.1 (2.5-4.0cm) PWs1.7 cm Left ventricular chamber size at upper limits of normal. Global left ventricular hypokinesis. Septal akinesis. Left ventricular ejection fraction estimated to be 25-30 %. Mild left ventricular hypertrophy. No evidence of pericardial effusion. Severe bi- atrial enlargement. Right ventricular chamber size is within normal limits. Mild focal aortic valve sclerosis with adequate cusp excursion. Mildly thickened mitral valve leaflets with normal excursion. Mitral annulus and aortic root calcification. Pulmonic valve not well visualized. Normal tricuspid valve structure. IVC dilated at 2.7 cm and non-collapsing with respiration suggestive of increased RA pressure. A color flow and spectral Doppler study was performed and revealed: Mild aortic insufficiency. Moderate mitral regurgitation. Can not determine left ventricular diastolic function by mitral diastolic velocities due to atrial fibrillation. Moderate tricuspid regurgitation. Tricuspid systolic velocities suggests peak right ventricular systolic pressure of 50 mmHg, consistent with moderate pulmonary hypertension. Pulmonic regurgitation present.
[2017-01-01 20:00] VITALS: BP 111/78
--- NOTE | 2017-01-01 20:48 | Consultation ---
DATE OF CONSULTATION: 01/01/2017 CARDIOLOGY CONSULTATION CONSULTING PHYSICIAN: Toby Keenan M.D. REFERRING PHYSICIAN: Lisa Scruggs M.D. REASON FOR CONSULTATION: Atrial fibrillation. HISTORY OF PRESENT ILLNESS: This is a 61-year-old gentleman who has a history of atrial fibrillation "for most of his life." He presented to the hospital at [facility] because of shortness of breath on exertion and shortness of breath at rest. He uses about 2 to 6 pillows to sleep at night, but still feels that he cannot fall asleep. He is using some inhalers that have not been helpful for him. He has palpitations. He does not have any dizziness or lightheadedness. He has had very rare episodes of chest pain that are 1 or 2 seconds of sharp lancinating pain in duration, no other pains. PAST MEDICAL HISTORY: Positive for a history of systolic and diastolic heart failure, atrial fibrillation, hypertension, prostate cancer, COPD, polycythemia, and hematuria back in June 2016, at which time we started him on Eliquis, which he has apparently been continued since then. He was also on a course of beta-blockers to control his heart rate and at that time in June, he had a perfusion imaging that had shown the large fixed apical, anteroseptal, and inferoseptal perfusion defects consistent with a large infarction with ejection fraction of 26%. An echocardiogram also performed previously that showed global hypokinesis, but ejection fraction at that time was estimated by echo was 40% to 45%. No significant valvular lesions were noted. He does have history of high blood pressure. He does have a history of prostate cancer, was treated with radiation therapy. No hepatitis or tuberculosis. He does have COPD. No ulcers. No kidney problems, liver problems, thyroid problems, anemia, or arthritis. ALLERGIES: He is not allergic to any medications. SOCIAL HISTORY: He used to smoke for about 10 years and he quit that three years ago. No alcohol. No drugs. He used to work in the business of [employer]. REVIEW OF SYSTEMS: Gastrointestinal: Positive for both intermittent diarrhea and constipation. Genitourinary: Negative. Pulmonary: Positive for coughing and wheezing. Constitutional: No fever, chills, or night sweats Neurological: Negative. PHYSICAL EXAMINATION: GENERAL: A middle-aged gentleman, in no apparent respiratory distress. NECK: Supple. No jugular venous distention is noted. No abdominojugular reflux noted. LUNGS: Appeared to be relatively clear on the right side. Few crackles were noted on the left side. CARDIAC: Irregularly irregular. No RV lifts, heaves, or thrills are noted. ABDOMEN: His abdomen is soft and nontender. Positive bowel sounds. EXTREMITIES: There is no clubbing, cyanosis, nor is there any edema. NEUROLOGIC: He is awake, alert, responsive, in no apparent respiratory distress. LABORATORY VALUES: A chest x-ray performed in the emergency room yesterday shows no evidence of acute disease, stable cardiomegaly. Blood tests - white count of 6.6 with a hemoglobin of 18.3 and platelet count of 163. Sodium is 142, potassium 4.3, chloride 100, bicarbonate 27, BUN of 19, creatinine 1.2, and glucose of 83. Lactic acid of 1.6. Liver function tests are relatively normal. CK of 160. ProBNP of 6690. Troponin was less than 0.1 yesterday. His INR was 1.3 and PTT of 31. Urinalysis yesterday was fairly unremarkable. The EKG last night shows atrial fibrillation with ventricular response. It appears to be relatively controlled on one of the EKGs and higher on another EKG, some T-wave inversions in the lateral leads are noted, may be secondary to left ventricular hypertrophy, and our comparison with EKG from June 2016 really is unchanged. He did have telemetry, some wide complex tachycardia of short duration, may have been aberrant conduction. ASSESSMENT: 1. Permanent atrial fibrillation. 2. Acute on chronic systolic heart failure. 3. Ischemic cardiomyopathy, nonreversible. 4. Chronic obstructive pulmonary disease. 5. Hyperglycemia. 6. Wide complex tachycardia. 7. Polycythemia. RECOMMENDATION: Dr. Scruggs, this patient was seen in cardiac consultation. The patient will receive some diuretics for probable heart failure and continued treatment for underlying COPD. He should be continued on his Eliquis for stroke prevention. His blood pressure medication will need to be adjusted. He should be probably taken off of amlodipine and placed on Cardizem for blood pressure control. His lisinopril should be continued for his cardiomyopathy. If his COPD allows, at some point, he should be on some Coreg for his cardiomyopathy as well, and diuretics to be continued at home as well as in the hospital. Further recommendations depending on the results of the subsequent testing. Toby Keenan M.D. DR: JOSEPH JOB#: [id number] CC:
[2017-01-01] MEDS: Tamsulosin 0.4mg cap ORAL SCH (21:04)
[2017-01-01] MEDS: DuoNeb 0.5-3(2.5)mg/3ml neb HHN PRN (23:12)
[2017-01-02] VITALS (7 sets, daily range): BP systolic 109–149; BP diastolic 65–93
[2017-01-02] MEDS: NovoLOG Insulin Flexpen SUBQ SCH ×4 (06:37→21:00)
[2017-01-02 07:23] LABS: MEAN CORPUSCULAR HEMOGLOBIN 34.7 PG (27.0-31.0); MEAN CORPUSCULAR HGB CONC 32.3 G/DL (32.0-36.0); MEAN CORPUSCULAR VOLUME 108 FL (80-99); MEAN PLATELET VOLUME 8.2 FL (6.5-10.1); PLATELET COUNT 205 K/UL (150-450); RED BLOOD COUNT 4.94 M/UL (4.70-6.10); RED CELL DISTRIBUTION WIDTH 12.2 % (11.6-14.8); WHITE BLOOD COUNT 15.4 K/UL (4.8-10.8)
[2017-01-02 07:50] LABS: ALANINE AMINOTRANSFERASE 29 U/L (3-41); ALBUMIN/GLOBULIN RATIO 1.5 (1.0-2.7); ANION GAP 13 (5-15); ASPARTATE AMINO TRANSFERASE 28 U/L (5-40); CALCIUM 9.2 mg/dL (8.6-10.2); CARBON DIOXIDE 28 mEQ/L (20-30); CHLORIDE 99 mEQ/L (98-107); CREATININE 1.1 mg/dL (0.7-1.2); GLOMERULAR FILTRATION RATE > 60 mL/min (>60); HEMOLYSIS 9; POTASSIUM 4.4 mEQ/L (3.4-4.9); SODIUM 140 mEQ/L (135-145); TOTAL PROTEIN 6.1 g/dL (6.6-8.7)
[2017-01-02 07:53] LABS: BAND NEUTROPHILS % (MANUAL) 0 % (0-8); BASOPHILS % (MANUAL) 0 % (0-2); EOSINOPHILS % (MANUAL) 0 % (0-3); LYMPHOCYTES % (MANUAL) 6 % (20-45); MACROCYTES 1+; NEUTROPHILS % (MANUAL) 89 % (45-75); PLATELET ESTIMATE ADEQUATE; PLATELET MORPHOLOGY NORMAL; TOTAL CELLS COUNTED 100
[2017-01-02] MEDS: Lisinopril 10mg tab ORAL SCH (08:23)
[2017-01-02] MEDS: Eliquis 2.5mg tablet ORAL SCH ×2 (08:23→17:09)
[2017-01-02] MEDS: Theophylline ER 100mg ORAL SCH ×2 (08:23→21:00)
[2017-01-02] MEDS ORDERED: Furosemide 40mg tab ORAL SCH (09:00)
--- NOTE | 2017-01-02 11:19 | Diagnostic Imaging Report ---
Indication: DYSPNEA Technique: One view of the chest Comparison: none Findings: Please note that the date listed on the exam is incorrect. The correct date is 01/02/2017. The heart is enlarged. There is a questionable faint ovoid opacity at the right lung base. The remainder of the lungs and pleural spaces are clear. Impression: There are questionable right basilar opacity, if real could represent a faint patchy infiltrate No acute process otherwise and no significant change since 12/31/2016
--- NOTE | 2017-01-02 13:08 | Pulmonology Progress Note ---
Assessment/Plan Problems: (1) Acute respiratory failure (2) Acute on chronic diastolic heart failure secondary to hypertrophic cardiomyopathy (3) HTN (hypertension) (4) Atrial fibrillation (5) COPD (chronic obstructive pulmonary disease) Assessment/Plan improving dc steroids and abx titrate cardiac meds f/u echo continue Apixiban titrate cardiac meds/ cardio f/u of vtach this morning Subjective Interval Events: vtach 10 beats this morning Allergies: Coded Allergies: No Known Allergies (Unverified , 07/15/16) Objective Last 24 Hour Vital Signs Date Time Temp Pulse Resp B/P Pulse Ox O2 Delivery O2 Flow Rate FiO2 01/02/17 12:00 93 01/02/17 11:43 97.7 101 18 122/65 96 Room Air 01/02/17 08:23 130/81 01/02/17 08:00 91 01/02/17 07:54 97.0 90 18 111/91 96 Room Air 01/02/17 07:27 99 18 Room Air 01/02/17 06:36 96 126/68 01/02/17 04:00 97.2 85 20 124/66 96 01/02/17 04:00 85 01/02/17 00:00 105 01/02/17 00:00 98.0 109 18 109/75 97 Room Air 21 01/01/17 23:12 85 18 97 Room Air 01/01/17 23:12 21 01/01/17 23:12 83 18 95 Room Air 21 01/01/17 21:19 109 111/78 01/01/17 20:11 58 18 Room Air 01/01/17 20:00 100 01/01/17 20:00 97.5 109 20 111/78 96 Room Air 01/01/17 16:00 114 01/01/17 15:42 97.0 100 18 134/90 97 Room Air 01/01/17 14:14 109 106/73 Intake and Output 01/01/17 01/02/17 19:00 07:00 Intake Total 710.0 ml 240 ml Output Total 900 ml Balance -190.0 ml 240 ml Intake Oral 600 ml 240 ml IV Total 110.0 ml Output Urine Total 900 ml # Voids 1 General Appearance: WD/WN HEENT: normocephalic, atraumatic Respiratory/Chest: chest wall non-tender, lungs clear Cardiovascular: normal peripheral pulses, normal rate Abdomen: normal bowel sounds, soft, non tender Genitourinary: normal external genitalia Extremities: no cyanosis 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 Laboratory Tests 01/02/17 06:10: White Blood Count 15.4H, Red Blood Count 4.94, Hemoglobin 17.1, Hematocrit 53.1H , Mean Corpuscular Volume 108H, Mean Corpuscular Hemoglobin 34.7H, Mean Corpuscular Hemoglobin Concent 32.3, Red Cell Distribution Width 12.2, Platelet Count 205, Mean Platelet Volume 8.2, Neutrophils (%) (Auto) , Lymphocytes (%) ( Auto) , Monocytes (%) (Auto) , Eosinophils (%) (Auto) , Basophils (%) (Auto) , Differential Total Cells Counted 100, Neutrophils % (Manual) 89H, Lymphocytes % (Manual) 6L, Monocytes % (Manual) 5, Eosinophils % (Manual) 0, Basophils % ( Manual) 0, Band Neutrophils 0, Platelet Estimate Adequate, Platelet Morphology Normal, Macrocytosis 1+, Sodium Level 140, Potassium Level 4.4, Chloride Level 99, Carbon Dioxide Level 28, Anion Gap 13, Blood Urea Nitrogen 21, Creatinine 1.1, Estimat Glomerular Filtration Rate > 60, Glucose Level 120H, Calcium Level 9.2, Total Bilirubin 0.9, Aspartate Amino Transf (AST/SGOT) 28, Alanine Aminotransferase (ALT/SGPT) 29, Alkaline Phosphatase 74, Pro-B-Type Natriuretic Peptide 2247H, Total Protein 6.1L, Albumin 3.7, Globulin 2.4, Albumin/Globulin Ratio 1.5, Free Prostate Specific Antigen [Pending], Percent Free Prostate Specific Ag [Pending], Prostate Specific Antigen Total [Pending] Current Medications Medications (Trade) Dose Ordered Sig/Marlyn Route PRN Reason Start Time Stop Time Status Last Admin Dose Admin Albuterol/ Ipratropium (DuoNeb 0.5-3(2.5)mg/3ml) 3 ml EVERY 4 HOURS PRN HHN dyspnea 12/31/16 13:45 01/05/17 13:44 01/01/17 23:12 Apixaban (Eliquis) 5 mg BID ORAL 12/31/16 18:00 01/30/17 17:59 01/02/17 08:23 Dextrose (Dextrose 50%) STAT PRN IV Hypoglycemia 12/31/16 13:45 01/30/17 13:44 Diltiazem HCl (Cardizem) 30 mg EVERY 8 HOURS ORAL 01/01/17 14:00 01/31/17 13:59 01/02/17 06:36 Furosemide (Lasix) 40 mg DAILY ORAL 01/02/17 09:00 02/01/17 08:59 01/02/17 08:23 Insulin Aspart (NovoLOG) BEFORE MEALS AND HS SUBQ 12/31/16 17:00 01/30/17 16:59 01/02/17 06:37 Lisinopril (Zestril) 10 mg DAILY ORAL 01/02/17 09:00 02/01/17 08:59 01/02/17 08:23 Lorazepam (Ativan 2mg/ml 1ml) 0.5 mg Q4H PRN IV For Anxiety 12/31/16 13:45 01/07/17 13:44 Morphine Sulfate (Morphine Sulfate) 2 mg EVERY 4 HOURS PRN IVP severe pain 712/31/16 13:45 01/07/17 13:44 Nitroglycerin (Ntg) 0.4 mg Q5M X 3 DOSES PRN SL Prn Chest Pain 12/31/16 13:45 01/30/17 13:44 Ondansetron HCl (Zofran) 4 mg Q6H PRN IVP Nausea & Vomiting 12/31/16 13:45 01/30/17 13:44 Promethazine HCl/ Codeine (Phenergan with Codeine) 5 ml EVERY 6 HOURS PRN ORAL cough 12/31/16 13:45 01/30/17 13:44 Tamsulosin HCl (Flomax) 0.4 mg BEDTIME ORAL 12/31/16 21:00 01/30/17 20:59 01/01/17 21:04 Temazepam (Restoril) 15 mg HSPRN PRN ORAL Insomnia 12/31/16 13:45 01/07/17 13:44 01/01/17 01:34 Theophylline (Severino-Dur) 100 mg EVERY 12 HOURS ORAL 12/31/16 21:00 01/30/17 20:59 01/02/17 08:23 NANO POPE Jan 02, 2017 13:08
--- NOTE | 2017-01-02 15:29 | Cardiology Report ---
APPROVED REPORT EKG Measurement Heart [id number] Atrial fibrillation with premature ventricular or aberrantly conducted complexes Anterior infarct, age undetermined Prolonged QT Abnormal ECG
--- NOTE | 2017-01-02 15:52 | Cardiology Report ---
APPROVED REPORT EKG Measurement Heart [id number] Atrial fibrillation with premature ventricular or aberrantly conducted complexes Voltage criteria for left ventricular hypertrophy Anteroseptal infarct, age undetermined T wave abnormality, consider lateral ischemia Prolonged QT Abnormal ECG
[2017-01-02] MEDS ORDERED: Tubing IV Secondary IV ONE (16:10)
[2017-01-02] MEDS ORDERED: NS 275ml ONE (16:10)
--- NOTE | 2017-01-02 19:48 | Cardiology Progress Note ---
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 peat through his health plan in future keep on eliquis hr is better emil place on cardizem cd Subjective Cardiovascular: Denies: chest pain, lightheadedness Respiratory: Reports: shortness of breath - better Gastrointestinal/Abdominal: Denies: abdominal pain Objective Last 24 Hour Vital Signs Date Time Temp Pulse Resp B/P Pulse Ox O2 Delivery O2 Flow Rate FiO2 01/02/17 16:09 97.0 89 18 118/79 97 Room Air 01/02/17 16:00 92 01/02/17 13:27 93 122/65 01/02/17 12:00 93 01/02/17 11:43 97.7 101 18 122/65 96 Room Air 01/02/17 08:23 130/81 01/02/17 08:00 91 01/02/17 07:54 97.0 90 18 111/91 96 Room Air 01/02/17 07:27 99 18 Room Air 01/02/17 06:36 96 126/68 01/02/17 04:00 97.2 85 20 124/66 96 01/02/17 04:00 85 01/02/17 00:00 105 01/02/17 00:00 98.0 109 18 109/75 97 Room Air 21 01/01/17 23:12 85 18 97 Room Air 01/01/17 23:12 21 01/01/17 23:12 83 18 95 Room Air 21 01/01/17 21:19 109 111/78 01/01/17 20:11 58 18 Room Air 01/01/17 20:00 100 01/01/17 20:00 97.5 109 20 111/78 96 Room Air General Appearance: no apparent distress, alert Neck: no JVD Cardiovascular: normal rate, irregularly irregular Respiratory/Chest: lungs clear, normal breath sounds Abdomen: normal bowel sounds, non tender, soft Extremities: no swelling Intake and Output 01/01/17 01/02/17 19:00 07:00 Intake Total 710.0 ml 240 ml Output Total 900 ml Balance -190.0 ml 240 ml Intake Oral 600 ml 240 ml IV Total 110.0 ml Output Urine Total 900 ml # Voids 1 Laboratory Tests Test 01/02/17 06:10 White Blood Count 15.4 K/UL (4.8-10.8) H Red Blood Count 4.94 M/UL (4.70-6.10) Hemoglobin 17.1 G/DL (14.2-18.0) Hematocrit 53.1 % (42.0-52.0) H Mean Corpuscular Volume 108 FL (80-99) H Mean Corpuscular Hemoglobin 34.7 PG (27.0-31.0) H Mean Corpuscular Hemoglobin Concent 32.3 G/DL (32.0-36.0) Red Cell Distribution Width 12.2 % (11.6-14.8) Platelet Count 205 K/UL (150-450) Mean Platelet Volume 8.2 FL (6.5-10.1) Neutrophils (%) (Auto) % (45.0-75.0) Lymphocytes (%) (Auto) % (20.0-45.0) Monocytes (%) (Auto) % (1.0-10.0) Eosinophils (%) (Auto) % (0.0-3.0) Basophils (%) (Auto) % (0.0-2.0) Differential Total Cells Counted 100 Neutrophils % (Manual) 89 % (45-75) H Lymphocytes % (Manual) 6 % (20-45) L Monocytes % (Manual) 5 % (1-10) Eosinophils % (Manual) 0 % (0-3) Basophils % (Manual) 0 % (0-2) Band Neutrophils 0 % (0-8) Platelet Estimate Adequate Platelet Morphology Normal Macrocytosis 1+ Sodium Level 140 mEQ/L (135-145) Potassium Level 4.4 mEQ/L (3.4-4.9) Chloride Level 99 mEQ/L (98-107) Carbon Dioxide Level 28 mEQ/L (20-30) Anion Gap 13 (5-15) Blood Urea Nitrogen 21 mg/dL (7-23) Creatinine 1.1 mg/dL (0.7-1.2) Estimat Glomerular Filtration Rate > 60 mL/min (>60) Glucose Level 120 mg/dL (74-106) H Calcium Level 9.2 mg/dL (8.6-10.2) Magnesium Level 2.3 mg/dL (1.7-2.5) Total Bilirubin 0.9 mg/dL (0.0-1.2) Aspartate Amino Transf (AST/SGOT) 28 U/L (5-40) Alanine Aminotransferase (ALT/SGPT) 29 U/L (3-41) Alkaline Phosphatase 74 U/L (40-129) Pro-B-Type Natriuretic Peptide 2247 pg/mL (0-125) H Total Protein 6.1 g/dL (6.6-8.7) L Albumin 3.7 g/dL (3.5-5.2) Globulin 2.4 g/dL Albumin/Globulin Ratio 1.5 (1.0-2.7) Free Prostate Specific Antigen Pending Percent Free Prostate Specific Ag Pending Prostate Specific Antigen Total Pending JUDE NAVARRETE Jan 02, 2017 19:48
[2017-01-02] MEDS: Tamsulosin 0.4mg cap ORAL SCH (21:00)
[2017-01-03 04:00] VITALS: BP 128/70
[2017-01-03] MEDS: DuoNeb 0.5-3(2.5)mg/3ml neb HHN PRN (04:31)
[2017-01-03] MEDS: NovoLOG Insulin Flexpen SUBQ SCH ×2 (06:10→11:31)
[2017-01-03 07:51] VITALS: BP 125/86
[2017-01-03] MEDS: Eliquis 2.5mg tablet ORAL SCH (08:13)
[2017-01-03] MEDS: Theophylline ER 100mg ORAL SCH (08:13)
[2017-01-03] MEDS: Lisinopril 10mg tab ORAL SCH (08:14)
[2017-01-03 08:19] LABS: PSA % FREE <10.0 % (.); PSA FREE <0.01 ng/mL; PSA TOTAL 0.1 ng/mL (0.0-4.0)
[2017-01-03] MEDS ORDERED: Diltiazem CD 120mg cap ORAL SCH (09:00)
[2017-01-03 12:00] VITALS: BP 114/67
[2017-01-03] MEDS ORDERED: CARDIZEM CD120 MG ORAL (12:28)
[2017-01-03] MEDS ORDERED: THEOPHYLLINE A100 MG ORAL (12:28)
--- NOTE | 2017-01-03 12:30 | Pulmonology Progress Note ---
Assessment/Plan Problems: (1) Acute respiratory failure (2) Acute on chronic diastolic heart failure secondary to hypertrophic cardiomyopathy (3) HTN (hypertension) (4) Atrial fibrillation (5) COPD (chronic obstructive pulmonary disease) Assessment/Plan improving heart rate better on cardizem DC on Epixiban titrate cardiac meds echo showing ef of 25% titrate cardiac meds/ Subjective ROS Limited/Unobtainable: No Constitutional: Reports: no symptoms HEENT: Repors: no symptoms Respiratory: Reports: no symptoms Allergies: Coded Allergies: No Known Allergies (Unverified , 07/15/16) Objective Last 24 Hour Vital Signs Date Time Temp Pulse Resp B/P Pulse Ox O2 Delivery O2 Flow Rate FiO2 01/03/17 08:14 125/86 01/03/17 08:13 66 125/86 01/03/17 08:00 101 01/03/17 07:51 97.9 66 18 125/86 99 Room Air 01/03/17 07:34 68 16 Room Air 01/03/17 04:36 64 20 98 Room Air 21 01/03/17 04:35 60 20 96 Room Air 21 01/03/17 04:00 85 01/03/17 04:00 97.8 49 18 128/70 96 Room Air 01/03/17 00:00 94 01/02/17 23:49 97.9 91 18 129/79 96 Room Air 01/02/17 21:28 64 16 Room Air 01/02/17 20:00 98.1 93 18 149/93 95 Room Air 01/02/17 19:58 105 01/02/17 16:09 97.0 89 18 118/79 97 Room Air 01/02/17 16:00 92 01/02/17 13:27 93 122/65 Intake and Output 01/02/17 01/03/17 19:00 07:00 Intake Total 720 ml 210 ml Balance 720 ml 210 ml Intake Oral 720 ml 210 ml # Voids 3 1 General Appearance: WD/WN HEENT: normocephalic, atraumatic Respiratory/Chest: chest wall non-tender, lungs clear Cardiovascular: normal peripheral pulses, normal rate Abdomen: normal bowel sounds, soft, non tender Genitourinary: normal external genitalia Extremities: no cyanosis Skin: no lesions Microbiology Date/Time Source Procedure Growth Status 01/02/17 11:25 Sputum Gram Stain - Final Resulted 01/02/17 11:25 Sputum Sputum Culture Pending Resulted Current Medications Medications (Trade) Dose Ordered Sig/Marlyn Route PRN Reason Start Time Stop Time Status Last Admin Dose Admin Albuterol/ Ipratropium (DuoNeb 0.5-3(2.5)mg/3ml) 3 ml EVERY 4 HOURS PRN HHN dyspnea 12/31/16 13:45 01/05/17 13:44 01/03/17 04:31 Apixaban (Eliquis) 5 mg BID ORAL 12/31/16 18:00 01/30/17 17:59 01/03/17 08:13 Dextrose (Dextrose 50%) STAT PRN IV Hypoglycemia 12/31/16 13:45 01/30/17 13:44 Diltiazem HCl (Cardizem CD) 120 mg DAILY ORAL 01/03/17 09:00 02/02/17 08:59 01/03/17 08:13 Furosemide (Lasix) 40 mg DAILY IV 01/03/17 09:00 02/02/17 08:59 01/03/17 08:14 Insulin Aspart (NovoLOG) BEFORE MEALS AND HS SUBQ 12/31/16 17:00 01/30/17 16:59 01/03/17 11:31 Lisinopril (Zestril) 10 mg DAILY ORAL 01/02/17 09:00 02/01/17 08:59 01/03/17 08:14 Lorazepam (Ativan 2mg/ml 1ml) 0.5 mg Q4H PRN IV For Anxiety 12/31/16 13:45 01/07/17 13:44 Morphine Sulfate (Morphine Sulfate) 2 mg EVERY 4 HOURS PRN IVP severe pain 7-10 12/31/16 13:45 01/07/17 13:44 Nitroglycerin (Ntg) 0.4 mg Q5M X 3 DOSES PRN SL Prn Chest Pain 12/31/16 13:45 01/30/17 13:44 Ondansetron HCl (Zofran) 4 mg Q6H PRN IVP Nausea & Vomiting 12/31/16 13:45 01/30/17 13:44 Promethazine HCl/ Codeine (Phenergan with Codeine) 5 ml EVERY 6 HOURS PRN ORAL cough 12/31/16 13:45 01/30/17 13:44 Tamsulosin HCl (Flomax) 0.4 mg BEDTIME ORAL 12/31/16 21:00 01/30/17 20:59 01/02/17 21:00 Temazepam (Restoril) 15 mg HSPRN PRN ORAL Insomnia 12/31/16 13:45 01/07/17 13:44 01/01/17 01:34 Theophylline (Severino-Dur) 100 mg EVERY 12 HOURS ORAL 12/31/16 21:00 01/30/17 20:59 01/03/17 08:13 NANO POPE Jan 03, 2017 12:30
[2017-01-03 15:26] VITALS: BP 129/56
--- NOTE | 2017-01-10 12:17 | Discharge Summary 2 SIG ---
DATE OF ADMISSION: 12/31/2016 DATE OF DISCHARGE: 01/03/2017 TELECOMMUNICATIONS CLERK: Toby Keenan M.D. BRIEF HOSPITAL COURSE: The patient is a 61-year-old male with a history of COPD, atrial fibrillation, and cardiomegaly, presented to ED, complaining of shortness of breath, worse when lying down. He has a history of COPD and CHF. On evaluation at ED, EKG showed atrial fibrillation. Laboratories showed polycythemia and hemoglobin level was elevated to 18. There was mild elevation in liver function. BNP was 6690. He was seen by Dr. Keenan. In June 2016, he had a perfusion imaging that showed large fixed apical, anteroseptal, and inferoseptal perfusion defect, consistent with a large infarction with ejection fraction of 26%. Repeat echocardiogram done showed ejection fraction of 25 to 30% with global left ventricular hypokinesis and RVSP of 50 with moderate pulmonary hypertension. He was given Lasix and was continued on Cardizem and Eliquis for atrial fibrillation. He was given Zosyn and IV Solu-Medrol. Steroids and antibiotics were discontinued. Heart rate improved on Cardizem. The patient was eventually discharged home to follow up with PMD upon discharge. FINAL DIAGNOSES: 1. Acute on chronic diastolic heart failure secondary to hypertrophic cardiomyopathy. 2. Hypertension. 3. Atrial fibrillation. 4. Chronic obstructive pulmonary disease. 5. Prostate cancer. Lisa Scruggs M.D. I have been assigned to dictate discharge summary on this account and I was not involved in the patient's management. Leann Estes N.P. DR: GRAEME JOB#: [id number] CC: BETITO
== END 2017-01-03 15:24 | disposition home or self-care (01) | DRG 314 ==
LOC: EMR 10:02 → 2E 11:30 → EDBEDREQ 15:35 → 2E 01-02 09:25
DX: I42.2 Other hypertrophic cardiomyopathy (principal); I50.23 Acute on chronic systolic (congestive) heart failure; J96.00 Acute respiratory failure, unspecified whether with hypoxia or hypercapnia; J44.9 Chronic obstructive pulmonary disease, unspecified; I48.2 Chronic atrial fibrillation; I10 Essential (primary) hypertension; D75.1 Secondary polycythemia; Z85.46 Personal history of malignant neoplasm of prostate; Z87.891 Personal history of nicotine dependence
CPT/HCPCS: 36415; 71010; 80053; 81003; 82248; 82550; 82962; 83605; 83735; 83880; 84153; 84154; 84484; 85007; 85025; 85610; 85730; 87070; 87205; 93005; 93306; 94640; 94664; J1815; J7620

== ENCOUNTER 2017-01-10 13:33 | Inpatient (IN) | payer OTHER ==
[~2017-01-10] VITALS: Ht 175.3 cm; Wt 81.2 kg
[~2017-01-10 13:33] MED LIST changes: +CARDIZEM CD120 MG ORAL; +THEOPHYLLINE A100 MG ORAL; +ZANTAC150 MG ORAL
--- NOTE | 2017-01-10 14:13 | Emergency Room Report ---
History of Present Illness General Chief Complaint: Chest Pain Source: Patient Present Illness HPI [id number] here for SOB since last night, "cant catch breath." Sleeping with multiple pillows. No wheezing, chest pain, fever/chills, cough. Known CHF, HTN , Afib, COPD. Recent admission for COPD/CHF exac. On Elliquis. Recently started on Cardizem but hasnt picked up Rx yet. Took Lasix today. PMHx: 1. Acute on chronic diastolic heart failure secondary to hypertrophic cardiomyopathy. 2. Hypertension. 3. Atrial fibrillation. 4. Chronic obstructive pulmonary disease. 5. Prostate cancer. Allergies: Coded Allergies: No Known Allergies (Unverified , 07/15/16) Patient History Past Medical History: CHF, AFib, COPD Past Surgical History: none Pertinent Family History: none Social History: Denies: alcohol use, drug use, smoking Immunizations: UTD Reviewed Nursing Documentation: PMH: Agreed, PSxH: Agreed Nursing Documentation-PMH Hx Cardiac Problems: Yes - Afib Hx Hypertension: Yes Hx Pacemaker: No Hx Asthma: Yes Hx COPD: Yes Hx Cancer: No Hx Gastrointestinal Problems: No Hx Neurological Problems: No Review of Systems All Other Systems: negative except mentioned in HPI Physical Exam Vital Signs Date Time Temp Pulse Resp B/P Pulse Ox O2 Delivery O2 Flow Rate FiO2 01/10/17 13:37 97.5 114 21 115/71 98 Room Air Sp02 EP Interpretation: reviewed, abnormal General Appearance: normal inspection, well appearing, alert, GCS 15, non-toxic , mild distress Head: normocephalic, atraumatic Eyes: bilateral eye EOMI, bilateral eye PERRL ENT: normal ENT inspection, hearing grossly normal, normal voice Neck: normal inspection, full range of motion, supple, no bony tend Respiratory: normal inspection, lungs clear, normal breath sounds, no respiratory distress, no retraction, no wheezing, rales, other - Bedside sono: Multiple B-lines on ultrasound Cardiovascular #1: regular rate, rhythm, no edema Gastrointestinal: normal inspection, normal bowel sounds, non tender, soft, no guarding, no hernia Genitourinary: no CVA tenderness Musculoskeletal: normal inspection, back normal, normal range of motion, Tete' s Sign negative Neurologic: normal inspection, alert, oriented x3, responsive, driver service technician III-XII nml as tested, speech normal Psychiatric: normal inspection, judgement/insight normal, mood/affect normal Skin: normal inspection, normal color, no rash Lymphatic: normal inspection Medical Decision Making Diagnostic Impression: Primary Impression: SOB (shortness of breath) Additional Impressions: Acute congestive heart failure Qualified Codes: I50.9 - Heart failure, unspecified Atrial fibrillation Qualified Codes: I48.2 - Chronic atrial fibrillation ER Course 61YOM with acute SOB for 2 days. VS notable for atrial fib WITHOUT RVR. Afebrile. Normotensive Lungs with rales, crackles Bedside lung ultrasound with acute on chronic CHF CXR no PNA Elevated BNP ECG: No ischemia. Took home LAsix this morning, was not given additional Lasix today Improved with BIPAP Endorsed to Dr Scruggs for LORENZO at 335pm EKG Diagnostic Results Rate: other - atrial fib ST Segments: no acute changes ASA given to the pt in ED: No Rhythm Strip Diag. Results EP Interpretation: yes Rate: 104 Chest X-Ray Diagnostic Results EP Interpretation: Yes Findings: no consolidation, no effusion, no pneumothorax, no acute cardiopulmonary disease Number of Views: 1 Last Vital Signs Date Time Temp Pulse Resp B/P Pulse Ox O2 Delivery O2 Flow Rate FiO2 01/10/17 13:37 97.5 114 21 115/71 98 Room Air Status: improved Disposition: ADMITTED INPATIENT Condition: Serious Referrals: [facility],REFERRING (PCP) JEWELL OLSON M.D. Jan 10, 2017 14:13
[2017-01-10 14:29] LABS: BASOPHILS % (AUTO) 0.8 % (0.0-2.0); EOSINOPHILS % (AUTO) 1.2 % (0.0-3.0); MEAN CORPUSCULAR HEMOGLOBIN 33.4 PG (27.0-31.0); MEAN CORPUSCULAR VOLUME 108 FL (80-99); MEAN PLATELET VOLUME 7.2 FL (6.5-10.1); MONOCYTES % (AUTO) 10.3 % (1.0-10.0); NEUTROPHILS % (AUTO) 66.7 % (45.0-75.0); PLATELET COUNT 183 K/UL (150-450); RED CELL DISTRIBUTION WIDTH 12.3 % (11.6-14.8); WHITE BLOOD COUNT 9.2 K/UL (4.8-10.8)
[2017-01-10 14:39] VITALS: BP 133/116
[2017-01-10 14:45] LABS: TROPONIN I < 0.30 ng/mL (<=0.30)
[2017-01-10 14:46] LABS: ALANINE AMINOTRANSFERASE 45 U/L (3-41); ALBUMIN/GLOBULIN RATIO 1.4 (1.0-2.7); ASPARTATE AMINO TRANSFERASE 38 U/L (5-40); CALCIUM 9.6 mg/dL (8.6-10.2); CARBON DIOXIDE 25 mEQ/L (20-30); CREATININE 1.2 mg/dL (0.7-1.2); GLOMERULAR FILTRATION RATE > 60 mL/min (>60); HEMOLYSIS 4; SODIUM 140 mEQ/L (135-145); TOTAL PROTEIN 6.3 g/dL (6.6-8.7)
[2017-01-10 14:47] LABS: ANION GAP 14 (5-15); CHLORIDE 101 mEQ/L (98-107); POTASSIUM 4.5 mEQ/L (3.4-4.9)
[2017-01-10 14:56] LABS: CKMB 2.8 ng/mL (< 6.7)
[2017-01-10 15:07] LABS: BILIRUBIN,DIRECT 0.4 mg/dL (0.1-0.3)
--- NOTE | 2017-01-10 15:56 | Diagnostic Imaging Report ---
Indications: Shortness Technique: Portable AP chest Findings: Comparison: 01/01/2017 Cardiac silhouette remains enlarged. Mild calcification and elongation of the thoracic aorta unchanged. Pulmonary vasculature remains within normal limits. Lungs and pleura remain clear. Thoracic vertebral osteophytes again noted. IMPRESSION: No evidence of acute cardiopulmonary disease, unchanged Stable chronic changes as described
[2017-01-10] MEDS ORDERED: Morphine Sulfate 2mg/ml Inj IVP PRN (16:00)
[2017-01-10] MEDS ORDERED: LORazepam Inj 2mg/ml 1ml IV PRN (16:00)
[2017-01-10] MEDS ORDERED: DuoNeb 0.5-3(2.5)mg/3ml neb HHN PRN (16:00)
[2017-01-10] MEDS ORDERED: Promethazine/Codeine 5ml UD ORAL PRN (16:00)
[2017-01-10] MEDS ORDERED: Nitroglycerin Subl 0.4mg tab (Bottle Of 25) SL PRN (16:00)
[2017-01-10 16:21] VITALS: BP 126/109
[2017-01-10 17:02] LABS: APPEARANCE,URINE CLEAR; KETONES,URINE NEGATIVE (NEGATIVE); LEUKOCYTE ESTERASE ,URINE NEGATIVE (NEGATIVE); NITRITE,URINE NEGATIVE (NEGATIVE); PH,URINE 6 (4.5-8.0); PROTEIN,URINE 1+ (NEGATIVE); UROBILINOGEN,URINE 1 MG/DL (0.0-1.0)
[2017-01-10 17:13] LABS: BACTERIA,URINE OCCASIONAL /HPF; RBC,URINE 0-2 /HPF (0 - 0); WBC,URINE 0-2 /HPF (0 - 0)
[2017-01-10 17:33] VITALS: BP 148/98
[2017-01-10] MEDS: NovoLOG Insulin Flexpen SUBQ SCH ×2 (18:00→21:28)
[2017-01-10] MEDS: Solu-MEDROL 125mg Inj IV SCH ×2 (18:14→23:35)
[2017-01-10] MEDS: Eliquis 2.5mg tablet ORAL SCH (18:14)
[2017-01-10] MEDS: Piperacillin/Tazobactam 3.375 GM in D5W 110 ML IVPB SCH (18:34)
[2017-01-10 20:19] VITALS: BP 149/75
[2017-01-10] MEDS ORDERED: Theophylline ER 100mg ORAL SCH (21:00)
[2017-01-10] MEDS: Tamsulosin 0.4mg cap ORAL SCH (21:27)
[2017-01-10] MEDS: Theophylline ER 100mg ORAL SCH (21:27)
[2017-01-11] VITALS: BP 141/79
[2017-01-11] MEDS: Piperacillin/Tazobactam 3.375 GM in D5W 110 ML IVPB SCH ×3 (01:55→17:30)
[2017-01-11 04:39] VITALS: BP 140/80
[2017-01-11] MEDS: Solu-MEDROL 125mg Inj IV SCH ×3 (05:55→21:23)
[2017-01-11] MEDS: NovoLOG Insulin Flexpen SUBQ SCH ×4 (05:59→21:00)
[2017-01-11 08:00] VITALS: BP 118/84
[2017-01-11] MEDS: Eliquis 2.5mg tablet ORAL SCH ×2 (08:24→17:30)
[2017-01-11] MEDS: Diltiazem CD 120mg cap ORAL SCH (08:24)
[2017-01-11] MEDS: Lisinopril 10mg tab ORAL SCH (08:25)
[2017-01-11] MEDS: Theophylline ER 100mg ORAL SCH ×2 (08:25→21:23)
--- NOTE | 2017-01-11 11:32 | History and Physical ---
History of Present Illness General Date patient seen: Jan 11, 2017 Reason for Hospitalization: Chest Pain Present Illness HPI 61year old male with hx Acute on chronic diastolic heart failure secondary to hypertrophic cardiomyopathy, Hypertension, Atrial fibrillation, Chronic obstructive pulmonary disease.presented to ER with CC of SOB since last night, "cant catch breath." Sleeping with multiple pillows. No wheezing, chest pain, fever/ chills, cough. He had episodes of heaviness on chest as well. Allergies: Coded Allergies: No Known Allergies (Unverified , 07/15/16) Medication History Scheduled Amlodipine Besylate* (Amlodipine Besylate*), 10 MG ORAL DAILY, (Reported) Apixaban (Eliquis), 5 MG PO EVERY 12 HOURS Diltiazem Hcl* (Cardizem Cd*), 120 MG ORAL DAILY Docusate Sodium (Docusate Sodium), 250 MG ORAL TWICE A DAY, (Reported) Fluticasone Propionate (Flovent Hfa), 2 PUFFS INH BID, (Reported) Furosemide* (Lasix*), 40 MG ORAL DAILY Furosemide* (Lasix*), 20 MG ORAL DAILY, (Reported) Hydrochlorothiazide* (Hydrochlorothiazide*), 25 MG ORAL DAILY, (Reported) Hydroxychloroquine Sulfate* (Plaquenil*), 200 MG ORAL TWICE A DAY, (Reported) Lisinopril (Lisinopril*), 20 MG ORAL DAILY Lisinopril (Lisinopril*), 10 MG ORAL DAILY, (Reported) Ranitidine Hcl* (Zantac*), 150 MG ORAL TWICE A DAY, (Reported) Tamsulosin Hcl (Tamsulosin Hcl*), 0.4 MG ORAL BEDTIME, (Reported) Theophylline (Theodur*), 100 MG ORAL EVERY 12 HOURS Scheduled PRN Albuterol Sulfate* (Albuterol Sulfate Hhn*), 3 ML INH Q6H PRN for Shortness of Breath, (Reported) Patient History Healthcare decision maker pt alert and oriented x4 Resuscitation status Full Code Advanced Directive on File Past Medical/Surgical History Past Medical/Surgical History: (1) COPD (chronic obstructive pulmonary disease) (2) Atrial fibrillation (3) History of smoking Review of Systems All Other Systems: negative except mentioned in HPI Physical Exam General Appearance: cachetic Lines, tubes and drains: peripheral, central line HEENT: normocephalic, atraumatic Neck: non-tender, normal alignment Respiratory/Chest: chest wall non-tender, normal breath sounds Breasts: no masses Cardiovascular/Chest: normal peripheral pulses Abdomen: normal bowel sounds Genitourinary/Rectal: normal genital exam Extremities: normal range of motion Last 24 Hour Vital Signs Date Time Temp Pulse Resp B/P Pulse Ox O2 Delivery O2 Flow Rate FiO2 01/11/17 08:25 118/84 01/11/17 08:24 88 118/84 01/11/17 08:00 90 01/11/17 04:39 97.5 94 19 140/80 97 Nasal Cannula 2.0 01/11/17 03:50 92 01/11/17 00:00 96.8 98 18 141/79 99 Nasal Cannula 2.0 01/10/17 23:39 90 01/10/17 20:19 95.7 67 19 149/75 100 Nasal Cannula 2.0 01/10/17 19:40 100 01/10/17 17:38 123 01/10/17 17:33 97.2 66 20 148/98 96 Bi-pap 30 01/10/17 17:15 97.5 110 20 124/94 100 Bi-pap 15.0 30 01/10/17 17:00 85 18 100 Facial 15.0 30 01/10/17 16:21 97.5 105 19 126/109 100 Bi-pap 15.0 30 01/10/17 15:52 97 19 Bi-pap 15.0 30 01/10/17 15:52 97 19 100 Facial 15.0 30 01/10/17 14:54 30 01/10/17 14:39 111 23 Room Air 01/10/17 14:39 97.7 111 23 133/116 100 Nasal Cannula 2.0 01/10/17 13:37 97.5 114 21 115/71 98 Room Air Intake and Output 01/10/17 01/11/17 19:00 07:00 Intake Total 15.5 ml 704.5 ml Output Total 70 ml 4700 ml Balance -54.5 ml -3995.5 ml Intake Oral 500 ml IV Total 15.5 ml 204.5 ml Output Urine Total 70 ml 4700 ml # Voids 2 Laboratory Tests Test 01/10/17 14:06 01/10/17 16:52 White Blood Count 9.2 K/UL (4.8-10.8) Red Blood Count 5.30 M/UL (4.70-6.10) Hemoglobin 17.7 G/DL (14.2-18.0) Hematocrit 57.1 % (42.0-52.0) H Mean Corpuscular Volume 108 FL (80-99) H Mean Corpuscular Hemoglobin 33.4 PG (27.0-31.0) H Mean Corpuscular Hemoglobin Concent 31.0 G/DL (32.0-36.0) L Red Cell Distribution Width 12.3 % (11.6-14.8) Platelet Count 183 K/UL (150-450) Mean Platelet Volume 7.2 FL (6.5-10.1) Neutrophils (%) (Auto) 66.7 % (45.0-75.0) Lymphocytes (%) (Auto) 21.0 % (20.0-45.0) Monocytes (%) (Auto) 10.3 % (1.0-10.0) H Eosinophils (%) (Auto) 1.2 % (0.0-3.0) Basophils (%) (Auto) 0.8 % (0.0-2.0) Sodium Level 140 mEQ/L (135-145) Potassium Level 4.5 mEQ/L (3.4-4.9) Chloride Level 101 mEQ/L (98-107) Carbon Dioxide Level 25 mEQ/L (20-30) Anion Gap 14 (5-15) Blood Urea Nitrogen 24 mg/dL (7-23) H Creatinine 1.2 mg/dL (0.7-1.2) Estimat Glomerular Filtration Rate > 60 mL/min (>60) Glucose Level 98 mg/dL (74-106) Calcium Level 9.6 mg/dL (8.6-10.2) Total Bilirubin 1.9 mg/dL (0.0-1.2) H Direct Bilirubin 0.4 mg/dL (0.1-0.3) H Aspartate Amino Transf (AST/SGOT) 38 U/L (5-40) Alanine Aminotransferase (ALT/SGPT) 45 U/L (3-41) H Alkaline Phosphatase 68 U/L (40-129) Total Creatine Kinase 55 U/L (38-174) Creatine Kinase MB 2.8 ng/mL (< 6.7) Creatine Kinase MB Relative Index 5.0 Troponin I < 0.30 ng/mL (<=0.30) Pro-B-Type Natriuretic Peptide 7480 pg/mL (0-125) H Total Protein 6.3 g/dL (6.6-8.7) L Albumin 3.7 g/dL (3.5-5.2) Globulin 2.6 g/dL Albumin/Globulin Ratio 1.4 (1.0-2.7) Urine Color Yellow Urine Appearance Clear Urine pH 6 (4.5-8.0) Urine Specific [place] 1.015 (1.005-1.035) Urine Protein 1+ (NEGATIVE) H Urine Glucose (UA) Negative (NEGATIVE) Urine Ketones Negative (NEGATIVE) Urine Occult Blood Negative (NEGATIVE) Urine Nitrite Negative (NEGATIVE) Urine Bilirubin Negative (NEGATIVE) Urine Urobilinogen 1 MG/DL (0.0-1.0) H Urine Leukocyte Esterase Negative (NEGATIVE) Urine RBC 0-2 /HPF (0 - 0) H Urine WBC 0-2 /HPF (0 - 0) Urine Squamous Epithelial Cells None /LPF (NONE/OCC) Urine Bacteria Occasional /HPF (NONE) Urine Opiates Screen Negative (NEGATIVE) Urine Barbiturates Screen Negative (NEGATIVE) Phencyclidine (PCP) Screen Negative (NEGATIVE) Urine Amphetamines Screen Positive (NEGATIVE) H Urine Benzodiazepines Screen Negative (NEGATIVE) Urine Cocaine Screen Negative (NEGATIVE) Urine Marijuana (THC) Screen Negative (NEGATIVE) Height (Feet): 5 Height (Inches): 9.00 Weight (Pounds): 170 Medications Current Medications Medications (Trade) Dose Ordered Sig/Marlyn Route PRN Reason Start Time Stop Time Status Last Admin Dose Admin Albuterol/ Ipratropium (DuoNeb 0.5-3(2.5)mg/3ml) 3 ml Q4H PRN HHN dyspnea 01/10/17 16:00 01/15/17 15:59 Apixaban (Eliquis) 5 mg BID ORAL 01/10/17 18:00 02/09/17 17:59 01/11/17 08:24 Dextrose (Dextrose 50%) STAT PRN IV Hypoglycemia 01/10/17 16:00 02/09/17 15:59 Diltiazem HCl (Cardizem CD) 120 mg DAILY ORAL 01/11/17 09:00 02/10/17 08:59 01/11/17 08:24 Furosemide (Lasix) 40 mg EVERY 8 HOURS IV 01/10/17 17:30 02/09/17 17:29 01/11/17 05:55 Insulin Aspart (NovoLOG) BEFORE MEALS AND HS SUBQ 01/10/17 18:00 02/09/17 17:59 01/11/17 05:59 Lisinopril (Zestril) 10 mg DAILY ORAL 01/11/17 09:00 02/10/17 08:59 01/11/17 08:25 Lorazepam (Ativan 2mg/ml 1ml) 0.5 mg Q4H PRN IV For Anxiety 01/10/17 16:00 01/17/17 15:59 Methylprednisolone Sodium Succinate (Solu-MEDROL) 60 mg EVERY 6 HOURS IV 01/10/17 18:00 02/09/17 17:59 01/11/17 05:55 Morphine Sulfate (Morphine Sulfate) 2 mg Q4H PRN IVP severe pain 7-10 01/10/17 16:00 01/17/17 15:59 Nitroglycerin (Ntg) 0.4 mg Q5M X 3 DOSES PRN SL Prn Chest Pain 01/10/17 16:00 02/09/17 15:59 Ondansetron HCl (Zofran) 4 mg Q6H PRN IVP Nausea & Vomiting 01/10/17 16:00 02/09/17 15:59 Piperacillin Sod/ Tazobactam Sod/ Dextrose (Zosyn/D5W) 110 ml @ 27.5 mls/hr Q8H IVPB 01/10/17 18:00 01/17/17 17:59 01/11/17 09:53 Promethazine HCl/ Codeine (Phenergan with Codeine) 5 ml Q6H PRN ORAL cough 01/10/17 16:00 02/09/17 15:59 Tamsulosin HCl (Flomax) 0.4 mg BEDTIME ORAL 01/10/17 21:00 02/09/17 20:59 01/10/17 21:27 Temazepam (Restoril) 15 mg HSPRN PRN ORAL Insomnia 01/10/17 16:00 01/17/17 15:59 Theophylline 100 mg 100 mg EVERY 12 HOURS ORAL 01/10/17 21:00 02/09/17 20:59 01/11/17 08:25 Assessment/Plan Problem List: (1) Acute respiratory failure ICD Codes: J96.00 - Acute respiratory failure, unspecified whether with hypoxia or hypercapnia SNOMED: 55564566 (2) Acute on chronic diastolic heart failure secondary to hypertrophic cardiomyopathy ICD Codes: I50.33 - Acute on chronic diastolic (congestive) heart failure; I42.2 - Other hypertrophic cardiomyopathy SNOMED: 977341705, [id number] (3) Atrial fibrillation ICD Codes: I48.91 - Unspecified atrial fibrillation SNOMED: 66218249 Qualifiers: Qualified Codes: I48.2 - Chronic atrial fibrillation (4) COPD (chronic obstructive pulmonary disease) ICD Codes: J44.9 - Chronic obstructive pulmonary disease, unspecified SNOMED: 50374086 Assessment/Plan IV diuretics control heart rate iv steroids check sputum cardiology evaluation NANO POPE Jan 11, 2017 11:32
[2017-01-11 12:00] VITALS: BP 121/79
[2017-01-11 16:00] VITALS: BP 127/68
[2017-01-11 20:00] VITALS: BP 122/73
[2017-01-11] MEDS: Tamsulosin 0.4mg cap ORAL SCH (21:24)
[2017-01-12 00:56] VITALS: BP 106/71
[2017-01-12] MEDS: Piperacillin/Tazobactam 3.375 GM in D5W 110 ML IVPB SCH ×3 (02:36→17:59)
[2017-01-12 04:00] VITALS: BP 111/78
[2017-01-12] MEDS: NovoLOG Insulin Flexpen SUBQ SCH ×4 (06:48→21:59)
[2017-01-12 08:00] VITALS: BP 133/72
[2017-01-12] MEDS: Solu-MEDROL 125mg Inj IV SCH (09:08)
[2017-01-12] MEDS: Eliquis 2.5mg tablet ORAL SCH ×2 (09:08→17:58)
[2017-01-12] MEDS: Theophylline ER 100mg ORAL SCH ×2 (09:08→21:49)
[2017-01-12] MEDS: Diltiazem CD 120mg cap ORAL SCH (09:10)
[2017-01-12] MEDS: Lisinopril 10mg tab ORAL SCH ×2 (09:11→18:07)
--- NOTE | 2017-01-12 09:25 | Pulmonology Progress Note ---
Assessment/Plan Problems: (1) Acute respiratory failure (2) EF 25% (3) COPD (chronic obstructive pulmonary disease) (4) Atrial fibrillation (5) Acute on chronic diastolic heart failure secondary to hypertrophic cardiomyopathy Assessment/Plan improving respiratory treatment decrease steroids continue abx no cultures yet afib controlled. Subjective ROS Limited/Unobtainable: No Constitutional: Reports: no symptoms HEENT: Repors: no symptoms Respiratory: Reports: no symptoms Allergies: Coded Allergies: No Known Allergies (Unverified , 07/15/16) Objective Last 24 Hour Vital Signs Date Time Temp Pulse Resp B/P Pulse Ox O2 Delivery O2 Flow Rate FiO2 01/12/17 09:11 133/72 01/12/17 09:10 95 133/72 01/12/17 07:15 95 Nasal Cannula 2.0 28 01/12/17 07:15 Nasal Cannula 2.0 28 01/12/17 07:14 65 19 Nasal Cannula 2.0 28 01/12/17 04:00 88 01/12/17 04:00 97.2 90 20 111/78 95 Nasal Cannula 2.0 01/12/17 00:56 98.0 87 20 106/71 95 Nasal Cannula 2.0 01/12/17 00:00 108 01/11/17 22:14 50 20 98 Nasal Cannula 2.0 01/11/17 20:00 114 01/11/17 20:00 98.4 48 20 122/73 98 Nasal Cannula 2.0 01/11/17 16:00 96 01/11/17 16:00 98.1 69 16 127/68 93 Nasal Cannula 3.0 01/11/17 12:00 95 01/11/17 12:00 97.0 78 20 121/79 98 Nasal Cannula 3.0 Intake and Output 01/11/17 01/12/17 19:00 07:00 Intake Total 577.5 ml 432.5 ml Output Total 1450 ml 800 ml Balance -872.5 ml -367.5 ml Intake Oral 440 ml 240 ml IV Total 137.5 ml 192.5 ml Output Urine Total 1450 ml 800 ml General Appearance: cachetic HEENT: normocephalic, atraumatic Respiratory/Chest: chest wall non-tender, lungs clear Cardiovascular: normal peripheral pulses, normal rate Abdomen: normal bowel sounds, soft, non tender Genitourinary: normal external genitalia Extremities: no cyanosis Neurologic/Psychiatric: 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 Complete 01/10/17 15:13 Rectum VRE Culture - Final NO VANCOMYCIN RESISTANT ENTEROCOCCUS ... Complete Current Medications Medications (Trade) Dose Ordered Sig/Marlyn Route PRN Reason Start Time Stop Time Status Last Admin Dose Admin Albuterol/ Ipratropium (DuoNeb 0.5-3(2.5)mg/3ml) 3 ml Q4H PRN HHN dyspnea 01/10/17 16:00 01/15/17 15:59 01/11/17 21:59 Apixaban (Eliquis) 5 mg BID ORAL 01/10/17 18:00 02/09/17 17:59 01/12/17 09:08 Dextrose (Dextrose 50%) STAT PRN IV Hypoglycemia 01/10/17 16:00 02/09/17 15:59 Diltiazem HCl (Cardizem CD) 120 mg DAILY ORAL 01/11/17 09:00 02/10/17 08:59 01/12/17 09:10 Furosemide (Lasix) 40 mg EVERY 8 HOURS IV 01/10/17 17:30 02/09/17 17:29 01/12/17 06:50 Insulin Aspart (NovoLOG) BEFORE MEALS AND HS SUBQ 01/10/17 18:00 02/09/17 17:59 01/12/17 06:48 Lisinopril (Zestril) 10 mg DAILY ORAL 01/11/17 09:00 02/10/17 08:59 01/12/17 09:11 Lorazepam (Ativan 2mg/ml 1ml) 0.5 mg Q4H PRN IV For Anxiety 01/10/17 16:00 01/17/17 15:59 Methylprednisolone Sodium Succinate (Solu-MEDROL) 60 mg DAILY IV 01/13/17 09:00 02/12/17 08:59 UNV Morphine Sulfate (Morphine Sulfate) 2 mg Q4H PRN IVP severe pain 7-10 01/10/17 16:00 01/17/17 15:59 Nitroglycerin (Ntg) 0.4 mg Q5M X 3 DOSES PRN SL Prn Chest Pain 01/10/17 16:00 02/09/17 15:59 Ondansetron HCl (Zofran) 4 mg Q6H PRN IVP Nausea & Vomiting 01/10/17 16:00 02/09/17 15:59 Piperacillin Sod/ Tazobactam Sod/ Dextrose (Zosyn/D5W) 110 ml @ 27.5 mls/hr Q8H IVPB 01/10/17 18:00 01/17/17 17:59 01/12/17 09:11 Promethazine HCl/ Codeine (Phenergan with Codeine) 5 ml Q6H PRN ORAL cough 01/10/17 16:00 02/09/17 15:59 Tamsulosin HCl (Flomax) 0.4 mg BEDTIME ORAL 01/10/17 21:00 02/09/17 20:59 01/11/17 21:24 Temazepam (Restoril) 15 mg HSPRN PRN ORAL Insomnia 01/10/17 16:00 01/17/17 15:59 Theophylline 100 mg 100 mg EVERY 12 HOURS ORAL 01/10/17 21:00 02/09/17 20:59 01/12/17 09:08 NANO POPE Jan 12, 2017 09:25
[2017-01-12 12:10] VITALS: BP 139/77
[2017-01-12 16:00] VITALS: BP 138/67
--- NOTE | 2017-01-12 17:42 | Cardiology Progress Note ---
Assessment/Plan Assessment/Plan chf acute on chronic systolic afib permanent htn icm prostte cancer hs copd na fluid restriction d/w [pt incerase acei and will need to be on laisx 40 mg bid this time on dc as 20 mg bid was ianadequaate copd treatment [id number] Objective Last 24 Hour Vital Signs Date Time Temp Pulse Resp B/P Pulse Ox O2 Delivery O2 Flow Rate FiO2 01/12/17 16:00 98.3 111 21 138/67 97 Room Air 01/12/17 12:10 96.6 99 20 139/77 96 Room Air 01/12/17 12:00 126 01/12/17 09:11 133/72 01/12/17 09:10 95 133/72 01/12/17 08:00 95 01/12/17 08:00 97.8 95 20 133/72 95 Room Air 01/12/17 07:15 95 Nasal Cannula 2.0 28 01/12/17 07:15 Nasal Cannula 2.0 28 01/12/17 07:14 65 19 Nasal Cannula 2.0 28 01/12/17 04:00 88 01/12/17 04:00 97.2 90 20 111/78 95 Nasal Cannula 2.0 01/12/17 00:56 98.0 87 20 106/71 95 Nasal Cannula 2.0 01/12/17 00:00 108 01/11/17 22:14 50 20 98 Nasal Cannula 2.0 01/11/17 20:00 114 01/11/17 20:00 98.4 48 20 122/73 98 Nasal Cannula 2.0 Intake and Output 01/11/17 01/12/17 19:00 07:00 Intake Total 577.5 ml 432.5 ml Output Total 1450 ml 800 ml Balance -872.5 ml -367.5 ml Intake Oral 440 ml 240 ml IV Total 137.5 ml 192.5 ml Output Urine Total 1450 ml 800 ml Microbiology Date/Time Source Procedure Growth Status 01/11/17 04:00 Sputum Gram Stain - Final Resulted 01/11/17 04:00 Sputum Sputum Culture - Preliminary NO GROWTH Resulted 01/10/17 15:13 Nasal Nares MRSA Culture - Final NO METHICILLIN RESISTANT STAPH AUREUS... Complete 01/10/17 15:13 Rectum VRE Culture - Final NO VANCOMYCIN RESISTANT ENTEROCOCCUS ... Complete JUDE NAVARRETE Jan 12, 2017 17:42
[2017-01-12 20:00] VITALS: BP 120/70
[2017-01-12] MEDS: Tamsulosin 0.4mg cap ORAL SCH (21:49)
[2017-01-13] VITALS: BP 148/80
[2017-01-13] MEDS: Piperacillin/Tazobactam 3.375 GM in D5W 110 ML IVPB SCH ×3 (02:41→17:48)
--- NOTE | 2017-01-13 03:18 | Consultation ---
DATE OF CONSULTATION: CARDIOLOGY CONSULTATION REASON FOR EVALUATION: Management of shortness of breath. HISTORY OF PRESENT ILLNESS: This is an elderly gentleman, who is known to me from one prior evaluation and hospitalization here. The patient carries a diagnosis of a nonischemic cardiomyopathy, chronic obstructive pulmonary disease with multiple exacerbations of both, comes in to the hospital because of shortness of breath. He was just recently in the hospital and was discharged not too long ago, approximately two weeks ago. He comes back telling me that the day after he left the hospital, he started getting shortness of breath. He had a hard time sleeping because of the shortness. After three hours, he would get up because of shortness of breath. There is no dizziness or lightheadedness. He has been somewhat coughing. He has to try to get himself off the oxygen and he tells me that he has been compliant with his medication, Lasix 20 mg twice daily, but he basically got short of breath. He uses some inhalers and did not feel better. PAST MEDICAL HISTORY: Positive for systolic and diastolic heart failure, atrial fibrillation of permanent degree, hypertension, prostate cancer, chronic obstructive pulmonary disease, polycythemia, and history of hematuria. He has been on Eliquis for his atrial fibrillation. He has beta-blockers for his heart rate control previously and during last hospitalization. He was started on Cardizem and taken off the beta-blockers. He has had a history of perfusion imaging that has shown a large fixed apical anteroseptal perfusion defect, large infarction, ejection fraction of 26%. Previous echocardiogram showed global hypokinesis, but ejection fraction at that time stayed maybe 40% to 45% and no significant valvular disease. He does have a history of high blood pressure. He has got a history of radiation therapy for his prostate cancer. ALLERGIES: He is not allergic to any medications. SOCIAL HISTORY: He used to smoke about 10 years ago. He quit that 3 years ago. He does not drink alcoholic beverages and he denies any drug use. 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 REVIEW OF SYSTEMS: Gastrointestinal: Negative. Genitourinary: Negative. Pulmonary: Positive for coughing and wheezing. Constitutional: Negative. Neurological: Negative. PHYSICAL EXAMINATION: GENERAL: Middle-aged gentleman, in no apparent distress. NECK: Supple. No jugular venous distention. LUNGS: Decreased breath sounds are noted really. No crackles are noted at this time, although he has been in the hospital for approximately two days, he was getting breathing treatments. CARDIAC: Regular rate and rhythm. No heaves. No thrills. No gallops noted. ABDOMEN: Soft and nontender. Positive bowel sounds. EXTREMITIES: There is no edema, clubbing, or cyanosis. NEUROLOGIC: He is awake, alert, responsive, in no apparent respiratory distress. LABORATORY VALUES: White count of 9.2, hemoglobin 17.7, hematocrit of 57.1, and platelet count of 183,000. His sodium is 140, potassium 4.5, chloride 101, bicarbonate of 25, BUN of 24, chloride 102, glucose of 198, and calcium is 9.6, and his liver function tests are normal. Troponin less than 0.03. He has had a proBNP of 7400, up from 2200 at the time of his prior discharge, which was about 7000 prior to his last admission or at the time of his last admission. His coags, INR is 1.3 and urinalysis is fairly unremarkable. Toxicology screen was positive for amphetamines. His vital signs, his blood pressure is in the reading 138/67, heart rate of 111, temperature 98.3, and saturations are 97% on room air. The chest x-ray shows no acute cardiopulmonary disease process. He had an echocardiogram that was performed on 07/25/2017 showed ejection fraction 25 to 30%. Global hypokinesis, severe biatrial enlargement, moderate mitral regurgitation, moderate tricuspid regurgitation, and pulmonary artery systolic in the 50s. ASSESSMENT: 1. [id number] congestive heart failure. 2. Cardiomyopathy, nonischemic. 3. Permanent atrial fibrillation. 4. Chronic obstructive pulmonary disease with exacerbation. 5. Systemic hypertension. 6. Pulmonary hypertension. 7. Moderate mitral and tricuspid regurgitation. PLAN: Dr. Scruggs, this patient was seen in cardiac consultation. The patient has been admitted to the hospital because of recurrent shortness of breath, which may have probably a component of both chronic obstructive pulmonary disease as well as congestive heart failure exacerbation. He has been taking Lasix 20 mg, he takes twice a day and he has been on lisinopril 20 mg on a daily basis. He has been on diltiazem also during last hospitalization. He is not sure if he is taking all of those medications. He has also been on theophylline at some point. He needs to be mindful of the amount of the amount of fluid intake. I did discuss with him to limit his fluid intake and sodium intake taking in compliance with his medications. I will re-evaluate his medications. We ordered the MYLA inhibitors and maybe discontinue the amlodipine and put him on some Cardizem for heart rate control and in the future, consider admitting Coreg. I am concerned about the findings of amphetamine in his urine indicating that may be using some amphetamines off course. We will discontinue hydrochlorothiazide and order only Lasix for him. His Eliquis is to be continued for stroke prevention and at the time of his discharge, he needs to be on a higher dose of Lasix than what he came in with, which was 20 mg. At this time, he should be on 40 mg twice daily at home in addition to his lisinopril and heart rate control medications. Toby Keenan M.D. DR: KYAW JOB#: [id number] CC:
[2017-01-13 04:00] VITALS: BP 124/73
[2017-01-13 05:25] LABS: MEAN CORPUSCULAR HEMOGLOBIN 34.8 PG (27.0-31.0); MEAN CORPUSCULAR HGB CONC 32.3 G/DL (32.0-36.0); MEAN CORPUSCULAR VOLUME 108 FL (80-99); MEAN PLATELET VOLUME 7.1 FL (6.5-10.1); PLATELET COUNT 204 K/UL (150-450); RED BLOOD COUNT 5.02 M/UL (4.70-6.10); RED CELL DISTRIBUTION WIDTH 12.6 % (11.6-14.8)
[2017-01-13 05:38] LABS: ALANINE AMINOTRANSFERASE 50 U/L (3-41); ALBUMIN/GLOBULIN RATIO 1.4 (1.0-2.7); ANION GAP 11 (5-15); ASPARTATE AMINO TRANSFERASE 32 U/L (5-40); CALCIUM 9.4 mg/dL (8.6-10.2); CARBON DIOXIDE 34 mEQ/L (20-30); CHLORIDE 94 mEQ/L (98-107); CREATININE 1.3 mg/dL (0.7-1.2); GLOMERULAR FILTRATION RATE > 60 mL/min (>60); HEMOLYSIS 9; POTASSIUM 3.6 mEQ/L (3.4-4.9); SODIUM 139 mEQ/L (135-145)
[2017-01-13 06:11] LABS: WHITE BLOOD COUNT 26.4 K/UL (4.8-10.8)
[2017-01-13] MEDS: NovoLOG Insulin Flexpen SUBQ SCH ×4 (06:22→20:45)
[2017-01-13 07:58] VITALS: BP 111/62
[2017-01-13] MEDS: Diltiazem CD 120mg cap ORAL SCH (08:21)
[2017-01-13] MEDS: Eliquis 2.5mg tablet ORAL SCH ×2 (08:22→17:48)
[2017-01-13] MEDS: Lisinopril 10mg tab ORAL SCH ×2 (08:22→17:48)
[2017-01-13] MEDS: Theophylline ER 100mg ORAL SCH ×2 (08:22→20:41)
[2017-01-13] MEDS ORDERED: Solu-MEDROL 125mg Inj IV SCH (09:00)
[2017-01-13 09:37] LABS: BAND NEUTROPHILS % (MANUAL) 0 % (0-8); BASOPHILS % (MANUAL) 0 % (0-2); EOSINOPHILS % (MANUAL) 0 % (0-3); LYMPHOCYTES % (MANUAL) 7 % (20-45); MACROCYTES 1+; NEUTROPHILS % (MANUAL) 91 % (45-75); PLATELET ESTIMATE ADEQUATE; PLATELET MORPHOLOGY NORMAL; TOTAL CELLS COUNTED 100
--- NOTE | 2017-01-13 10:04 | Diagnostic Imaging Report ---
Indications: DYSPNEA Technique: Portable AP chest Findings: Comparison: 01/10/2017 Cardiac silhouette remains enlarged. Pulmonary vascular redistribution, bilateral interstitial infiltrates have resolved. Lungs and pleura currently clear. No new abnormality identified. IMPRESSION: Resolution of previous bilateral congestive changes Stable cardiomegaly
[2017-01-13 12:12] VITALS: BP 114/61
[2017-01-13] MEDS ORDERED: Nitroglycerin Subl 0.4mg tab (Bottle Of 25) SL PRN (14:00)
[2017-01-13 15:33] VITALS: BP 130/84
[2017-01-13] MEDS ORDERED: Morphine Sulfate 2mg/ml Inj IVP PRN (16:00)
[2017-01-13] MEDS ORDERED: LORazepam Inj 2mg/ml 1ml IV PRN (16:00)
[2017-01-13] MEDS ORDERED: Promethazine/Codeine 5ml UD ORAL PRN (16:00)
[2017-01-13] MEDS ORDERED: DuoNeb 0.5-3(2.5)mg/3ml neb HHN PRN (16:00)
--- NOTE | 2017-01-13 17:08 | Cardiology Progress Note ---
Assessment/Plan Assessment/Plan chf acute on chronic systolic afib permanent htn icm prostte cancer hs copd na fluid restriction d/w [pt again 01/13/2017 incerase acei and will need to be on lasix 40 mg bid copd treatment out pt fu with chart writer through [facility] [employer] [facility] he indicated understanding Subjective Cardiovascular: Denies: chest pain, lightheadedness, palpitations Respiratory: Denies: shortness of breath Gastrointestinal/Abdominal: Denies: abdominal pain Genitourinary: Denies: burning Objective Last 24 Hour Vital Signs Date Time Temp Pulse Resp B/P Pulse Ox O2 Delivery O2 Flow Rate FiO2 01/13/17 15:33 97.0 92 20 130/84 95 Room Air 01/13/17 12:12 97.0 105 18 114/61 97 Room Air 01/13/17 12:08 93 01/13/17 08:22 111/62 01/13/17 08:21 90 111/62 01/13/17 07:58 97.5 90 18 111/62 Room Air 01/13/17 07:58 90 01/13/17 06:30 Nasal Cannula 2.0 01/13/17 06:30 93 18 Nasal Cannula 2.0 01/13/17 06:30 96 Nasal Cannula 2.0 01/13/17 04:00 98.6 95 18 124/73 Room Air 01/13/17 03:46 89 01/13/17 00:00 98.9 74 18 148/80 100 Room Air 01/12/17 23:42 100 01/12/17 20:45 Nasal Cannula 2.0 28 01/12/17 20:45 90 18 Nasal Cannula 2.0 28 01/12/17 20:45 96 Nasal Cannula 2.0 28 01/12/17 20:00 98.6 60 18 120/70 96 Room Air 01/12/17 19:53 104 01/12/17 18:07 138/67 General Appearance: alert Neck: no JVD Cardiovascular: normal rate, regular rhythm Respiratory/Chest: lungs clear, normal breath sounds Abdomen: normal bowel sounds, non tender, soft Extremities: no swelling Intake and Output 01/12/17 01/13/17 19:00 07:00 Intake Total 437.2 ml Output Total 750 ml Balance 437.2 ml -750 ml Intake Oral 300 ml IV Total 137.2 ml Output Urine Total 750 ml # Voids 4 2 Laboratory Tests Test 01/13/17 03:55 White Blood Count 26.4 K/UL (4.8-10.8) *H Red Blood Count 5.02 M/UL (4.70-6.10) Hemoglobin 17.5 G/DL (14.2-18.0) Hematocrit 54.2 % (42.0-52.0) H Mean Corpuscular Volume 108 FL (80-99) H Mean Corpuscular Hemoglobin 34.8 PG (27.0-31.0) H Mean Corpuscular Hemoglobin Concent 32.3 G/DL (32.0-36.0) Red Cell Distribution Width 12.6 % (11.6-14.8) Platelet Count 204 K/UL (150-450) Mean Platelet Volume 7.1 FL (6.5-10.1) Neutrophils (%) (Auto) % (45.0-75.0) Lymphocytes (%) (Auto) % (20.0-45.0) Monocytes (%) (Auto) % (1.0-10.0) Eosinophils (%) (Auto) % (0.0-3.0) Basophils (%) (Auto) % (0.0-2.0) Differential Total Cells Counted 100 Neutrophils % (Manual) 91 % (45-75) H Lymphocytes % (Manual) 7 % (20-45) L Monocytes % (Manual) 2 % (1-10) Eosinophils % (Manual) 0 % (0-3) Basophils % (Manual) 0 % (0-2) Band Neutrophils 0 % (0-8) Platelet Estimate Adequate Platelet Morphology Normal Macrocytosis 1+ Sodium Level 139 mEQ/L (135-145) Potassium Level 3.6 mEQ/L (3.4-4.9) Chloride Level 94 mEQ/L (98-107) L Carbon Dioxide Level 34 mEQ/L (20-30) H Anion Gap 11 (5-15) Blood Urea Nitrogen 39 mg/dL (7-23) H Creatinine 1.3 mg/dL (0.7-1.2) H Estimat Glomerular Filtration Rate > 60 mL/min (>60) Glucose Level 121 mg/dL (74-106) H Calcium Level 9.4 mg/dL (8.6-10.2) Total Bilirubin 0.9 mg/dL (0.0-1.2) Aspartate Amino Transf (AST/SGOT) 32 U/L (5-40) Alanine Aminotransferase (ALT/SGPT) 50 U/L (3-41) H Alkaline Phosphatase 109 U/L (40-129) Pro-B-Type Natriuretic Peptide 1421 pg/mL (0-125) H Total Protein 6.0 g/dL (6.6-8.7) L Albumin 3.5 g/dL (3.5-5.2) Globulin 2.5 g/dL Albumin/Globulin Ratio 1.4 (1.0-2.7) Microbiology Date/Time Source Procedure Growth Status 01/11/17 04:00 Sputum Gram Stain - Final Complete 01/11/17 04:00 Sputum Sputum Culture - Final NORMAL UPPER RESPIRATORY DANNY PRESENT Complete JUDE NAVARRETE Jan 13, 2017 17:07
[2017-01-13] MEDS ORDERED: CARDIZEM CD120 MG ORAL (18:51)
[2017-01-13] MEDS ORDERED: FUROSEMIDE40 MG ORAL (18:51)
[2017-01-13] MEDS ORDERED: LISINOPRIL10 MG ORAL (18:51)
[2017-01-13] MEDS ORDERED: ELIQUIS2.5 MG ORAL (18:51)
--- NOTE | 2017-01-13 18:54 | Pulmonology Progress Note ---
Assessment/Plan Problems: (1) Acute respiratory failure (2) EF 25% (3) COPD (chronic obstructive pulmonary disease) (4) Atrial fibrillation (5) Acute on chronic diastolic heart failure secondary to hypertrophic cardiomyopathy Assessment/Plan improving respiratory treatment decrease steroids continue abx no cultures yet afib controlled. dc planning in am Subjective ROS Limited/Unobtainable: No Interval Events: asymptomatic Allergies: Coded Allergies: No Known Allergies (Unverified , 07/15/16) Objective Last 24 Hour Vital Signs Date Time Temp Pulse Resp B/P Pulse Ox O2 Delivery O2 Flow Rate FiO2 01/13/17 17:48 121/79 01/13/17 16:08 117 01/13/17 15:33 97.0 92 20 130/84 95 Room Air 01/13/17 12:12 97.0 105 18 114/61 97 Room Air 01/13/17 12:08 93 01/13/17 08:22 111/62 01/13/17 08:21 90 111/62 01/13/17 07:58 97.5 90 18 111/62 Room Air 01/13/17 07:58 90 01/13/17 06:30 Nasal Cannula 2.0 01/13/17 06:30 93 18 Nasal Cannula 2.0 01/13/17 06:30 96 Nasal Cannula 2.0 01/13/17 04:00 98.6 95 18 124/73 Room Air 01/13/17 03:46 89 01/13/17 00:00 98.9 74 18 148/80 100 Room Air 01/12/17 23:42 100 01/12/17 20:45 Nasal Cannula 2.0 28 01/12/17 20:45 90 18 Nasal Cannula 2.0 28 01/12/17 20:45 96 Nasal Cannula 2.0 28 01/12/17 20:00 98.6 60 18 120/70 96 Room Air 01/12/17 19:53 104 Intake and Output 01/12/17 01/13/17 19:00 07:00 Intake Total 437.2 ml Output Total 750 ml Balance 437.2 ml -750 ml Intake Oral 300 ml IV Total 137.2 ml Output Urine Total 750 ml # Voids 4 2 Objective General Appearance: WD/WN HEENT: normocephalic, atraumatic Respiratory/Chest: chest wall non-tender, lungs clear Cardiovascular: normal peripheral pulses, normal rate, regular rhythm Abdomen: normal bowel sounds, soft, non tender, no organomegaly Extremities: no cyanosis, no clubbing Skin: no rash, no lesions Neurologic/Psychiatric: 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 II-XII grossly normal Lymphatic: no neck adenopathy, no groin adenopathy General Appearance: WD/WN Microbiology Date/Time Source Procedure Growth Status 01/11/17 04:00 Sputum Gram Stain - Final Complete 01/11/17 04:00 Sputum Sputum Culture - Final NORMAL UPPER RESPIRATORY DANNY PRESENT Complete Laboratory Tests 01/13/17 03:55: White Blood Count 26.4*H, Red Blood Count 5.02, Hemoglobin 17.5, Hematocrit 54.2H, Mean Corpuscular Volume 108H, Mean Corpuscular Hemoglobin 34.8H, Mean Corpuscular Hemoglobin Concent 32.3, Red Cell Distribution Width 12.6, Platelet Count 204, Mean Platelet Volume 7.1, Neutrophils (%) (Auto) , Lymphocytes (%) ( Auto) , Monocytes (%) (Auto) , Eosinophils (%) (Auto) , Basophils (%) (Auto) , Differential Total Cells Counted 100, Neutrophils % (Manual) 91H, Lymphocytes % (Manual) 7L, Monocytes % (Manual) 2, Eosinophils % (Manual) 0, Basophils % ( Manual) 0, Band Neutrophils 0, Platelet Estimate Adequate, Platelet Morphology Normal, Macrocytosis 1+, Sodium Level 139, Potassium Level 3.6, Chloride Level 94L, Carbon Dioxide Level 34H, Anion Gap 11, Blood Urea Nitrogen 39H, Creatinine 1.3H, Estimat Glomerular Filtration Rate > 60, Glucose Level 121H, Calcium Level 9.4, Total Bilirubin 0.9, Aspartate Amino Transf (AST/SGOT) 32, Alanine Aminotransferase (ALT/SGPT) 50H, Alkaline Phosphatase 109, Pro-B-Type Natriuretic Peptide 1421H, Total Protein 6.0L, Albumin 3.5, Globulin 2.5, Albumin/Globulin Ratio 1.4 Current Medications Medications (Trade) Dose Ordered Sig/Marlyn Route PRN Reason Start Time Stop Time Status Last Admin Dose Admin Al Hydroxide/Mg Hydroxide (Mylanta) 30 ml Q6H PRN ORAL gas pain 01/13/17 16:00 02/12/17 15:59 Albuterol/ Ipratropium (DuoNeb 0.5-3(2.5)mg/3ml) 3 ml Q4H PRN HHN dyspnea 01/13/17 16:00 01/18/17 15:59 Apixaban (Eliquis) 5 mg BID ORAL 01/13/17 18:00 02/12/17 17:59 01/13/17 17:48 Dextrose (Dextrose 50%) STAT PRN IV Hypoglycemia 01/13/17 16:00 02/12/17 15:59 Diltiazem HCl (Cardizem CD) 120 mg DAILY ORAL 01/14/17 09:00 02/13/17 08:59 Furosemide (Lasix) 40 mg EVERY 12 HOURS ORAL 01/14/17 09:00 02/13/17 08:59 Insulin Aspart (NovoLOG) BEFORE MEALS AND HS SUBQ 01/13/17 16:30 02/12/17 16:29 01/13/17 16:46 Lisinopril (Zestril) 20 mg BID ORAL 01/13/17 18:00 02/12/17 17:59 01/13/17 17:48 Lorazepam (Ativan 2mg/ml 1ml) 0.5 mg Q4H PRN IV For Anxiety 01/13/17 16:00 01/20/17 15:59 Methylprednisolone Sodium Succinate (Solu-MEDROL) 60 mg DAILY IV 01/14/17 09:00 02/13/17 08:59 Morphine Sulfate (Morphine Sulfate) 2 mg Q4H PRN IVP severe pain 7-10 01/13/17 16:00 01/20/17 15:59 Nitroglycerin (Ntg) 0.4 mg Q5M X 3 DOSES PRN SL Prn Chest Pain 01/13/17 14:00 02/12/17 13:59 Ondansetron HCl (Zofran) 4 mg Q6H PRN IVP Nausea & Vomiting 01/13/17 16:00 02/12/17 15:59 Piperacillin Sod/ Tazobactam Sod/ Dextrose (Zosyn/D5W) 110 ml @ 27.5 mls/hr Q8H IVPB 01/13/17 18:00 01/20/17 17:59 01/13/17 17:48 Potassium Chloride (K-Dur) 10 meq DAILY ORAL 01/14/17 09:00 02/13/17 08:59 Promethazine HCl/ Codeine (Phenergan with Codeine) 5 ml Q6H PRN ORAL cough 01/13/17 16:00 02/12/17 15:59 Tamsulosin HCl (Flomax) 0.4 mg BEDTIME ORAL 01/13/17 21:00 02/12/17 20:59 Temazepam (Restoril) 15 mg HSPRN PRN ORAL Insomnia 01/13/17 21:00 01/20/17 20:59 Theophylline (Esverino-Dur) 100 mg EVERY 12 HOURS ORAL 01/13/17 21:00 02/12/17 20:59 NANO POPE Jan 13, 2017 18:54
[2017-01-13 20:00] VITALS: BP 129/76
[2017-01-13] MEDS ORDERED: Tamsulosin 0.4mg cap ORAL SCH (21:00)
[2017-01-14 00:24] VITALS: BP 126/90
[2017-01-14] MEDS: Piperacillin/Tazobactam 3.375 GM in D5W 110 ML IVPB SCH ×2 (02:07→09:22)
[2017-01-14 04:18] VITALS: BP 133/75
[2017-01-14] MEDS: NovoLOG Insulin Flexpen SUBQ SCH ×2 (06:20→11:30)
[2017-01-14 08:00] VITALS: BP 135/88
[2017-01-14] MEDS: Lisinopril 10mg tab ORAL SCH (08:38)
[2017-01-14] MEDS ORDERED: Solu-MEDROL 125mg Inj IV SCH (09:00)
[2017-01-14] MEDS ORDERED: Diltiazem CD 120mg cap ORAL SCH (09:00)
[2017-01-14] MEDS ORDERED: Furosemide 40mg tab ORAL SCH (09:00)
[2017-01-14] MEDS: Theophylline ER 100mg ORAL SCH (09:22)
[2017-01-14] MEDS: Eliquis 2.5mg tablet ORAL SCH (09:22)
[2017-01-14 12:00] VITALS: BP 140/99
--- NOTE | 2017-01-14 13:08 | Pulmonology Progress Note ---
Assessment/Plan Problems: (1) Acute respiratory failure (2) EF 25% (3) COPD (chronic obstructive pulmonary disease) (4) Atrial fibrillation (5) Acute on chronic diastolic heart failure secondary to hypertrophic cardiomyopathy Assessment/Plan improving respiratory treatment decrease steroids continue abx no cultures yet afib controlled. dc planning today home with home health Subjective ROS Limited/Unobtainable: No Interval Events: doing much better Allergies: Coded Allergies: No Known Allergies (Unverified , 07/15/16) Objective Last 24 Hour Vital Signs Date Time Temp Pulse Resp B/P Pulse Ox O2 Delivery O2 Flow Rate FiO2 01/14/17 08:39 50 106/49 01/14/17 08:38 106/49 01/14/17 08:00 97.0 81 18 135/88 Room Air 01/14/17 08:00 110 01/14/17 04:18 98.3 68 21 133/75 97 Room Air 01/14/17 04:00 89 01/14/17 00:24 98.8 66 20 126/90 98 Room Air 01/13/17 20:00 98.4 50 19 129/76 95 Room Air 01/13/17 17:48 121/79 01/13/17 16:08 117 01/13/17 15:33 97.0 92 20 130/84 95 Room Air Intake and Output 01/13/17 01/14/17 19:00 07:00 Intake Total 552.5 ml 137.5 ml Output Total 250 ml Balance 302.5 ml 137.5 ml Intake Oral 470 ml IV Total 82.5 ml 137.5 ml Output Urine Total 250 ml # Voids 2 Objective General Appearance: WD/WN HEENT: normocephalic, atraumatic Respiratory/Chest: chest wall non-tender, lungs clear Cardiovascular: normal peripheral pulses, normal rate, regular rhythm Abdomen: normal bowel sounds, soft, non tender, no organomegaly Extremities: no cyanosis, no clubbing Skin: no rash, no lesions 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 normal Lymphatic: no neck adenopathy, no groin adenopathy Current Medications Medications (Trade) Dose Ordered Sig/Marlyn Route PRN Reason Start Time Stop Time Status Last Admin Dose Admin Al Hydroxide/Mg Hydroxide (Mylanta) 30 ml Q6H PRN ORAL gas pain 01/13/17 16:00 02/12/17 15:59 01/13/17 21:55 Albuterol/ Ipratropium (DuoNeb 0.5-3(2.5)mg/3ml) 3 ml Q4H PRN HHN dyspnea 01/13/17 16:00 01/18/17 15:59 Apixaban (Eliquis) 5 mg BID ORAL 01/13/17 18:00 02/12/17 17:59 01/14/17 09:22 Dextrose (Dextrose 50%) STAT PRN IV Hypoglycemia 01/13/17 16:00 02/12/17 15:59 Diltiazem HCl (Cardizem CD) 120 mg DAILY ORAL 01/14/17 09:00 02/13/17 08:59 Furosemide (Lasix) 40 mg EVERY 12 HOURS ORAL 01/14/17 09:00 02/13/17 08:59 01/14/17 09:22 Insulin Aspart (NovoLOG) BEFORE MEALS AND HS SUBQ 01/13/17 16:30 02/12/17 16:29 01/13/17 20:45 Lisinopril (Zestril) 20 mg BID ORAL 01/13/17 18:00 02/12/17 17:59 01/13/17 17:48 Lorazepam (Ativan 2mg/ml 1ml) 0.5 mg Q4H PRN IV For Anxiety 01/13/17 16:00 01/20/17 15:59 Methylprednisolone Sodium Succinate (Solu-MEDROL) 60 mg DAILY IV 01/14/17 09:00 02/13/17 08:59 01/14/17 09:22 Morphine Sulfate (Morphine Sulfate) 2 mg Q4H PRN IVP severe pain 7-10 01/13/17 16:00 01/20/17 15:59 Nitroglycerin (Ntg) 0.4 mg Q5M X 3 DOSES PRN SL Prn Chest Pain 01/13/17 14:00 02/12/17 13:59 Ondansetron HCl (Zofran) 4 mg Q6H PRN IVP Nausea & Vomiting 01/13/17 16:00 02/12/17 15:59 Piperacillin Sod/ Tazobactam Sod/ Dextrose (Zosyn/D5W) 110 ml @ 27.5 mls/hr Q8H IVPB 01/13/17 18:00 01/20/17 17:59 01/14/17 09:22 Potassium Chloride (K-Dur) 10 meq DAILY ORAL 01/14/17 09:00 02/13/17 08:59 01/14/17 09:22 Promethazine HCl/ Codeine (Phenergan with Codeine) 5 ml Q6H PRN ORAL cough 01/13/17 16:00 02/12/17 15:59 Tamsulosin HCl (Flomax) 0.4 mg BEDTIME ORAL 01/13/17 21:00 02/12/17 20:59 01/13/17 20:41 Temazepam (Restoril) 15 mg HSPRN PRN ORAL Insomnia 01/13/17 21:00 01/20/17 20:59 Theophylline (Severino-Dur) 100 mg EVERY 12 HOURS ORAL 01/13/17 21:00 02/12/17 20:59 01/14/17 09:22 NANO POPE Jan 14, 2017 13:08
[2017-01-16] MEDS ORDERED: MEDROL4 MG ORAL (08:53)
--- NOTE | 2017-01-16 08:53 | Discharge Summary ---
Discharge Summary Hospital Course Date of Admission Jan 10, 2017 at 15:15 Date of Discharge Jan 14, 2017 at 13:46 Admitting Diagnosis CHEST PAIN,CHF HPI Mega Montiel is a 61 year old male who was admitted on Jan 10, 2017 at 15:15 for Chest Pain,Congestive Heart Failure Hospital Course dc summary #[id number] Discharge Medications New Medications: Methylprednisolone* (Medrol*) 4 Mg Tablet 4 MG ORAL DAILY, #10 TAB 0 Refills Apixaban (Eliquis) 2.5 Mg Tablet 5 MG ORAL BID for 30 Days, TAB Diltiazem Hcl* (Cardizem Cd*) 120 Mg Cap.er.24h 120 MG ORAL DAILY for 30 Days, CAP Do not open, chew or crush capsule; swallow whole Furosemide* (Lasix*) 40 Mg Tablet 40 MG ORAL EVERY 12 HOURS for 30 Days, TAB Lisinopril* (Lisinopril*) 10 Mg Tablet 20 MG ORAL BID for 30 Days, TAB Continued Medications: Albuterol Sulfate* (Albuterol Sulfate Hhn*) 2.5 Mg/3 Ml Vial.neb 3 ML INH Q6H PRN for Shortness of Breath, #30 EA 0 Refills Tamsulosin Hcl (Tamsulosin Hcl*) 0.4 Mg Cap.er.24h 0.4 MG ORAL BEDTIME, CAP Theophylline (Theodur*) 100 Mg Tab.er.12h 100 MG ORAL EVERY 12 HOURS for 30 Days, TAB Discharge Condition Upon Discharge: stable Discharge Disposition Patient was discharged to Home with Home Health(06) Discharge Diagnoses: Discharge Instructions Discharge Instructions Special Instructions I have been assigned to complete a D/C Summary on this account. I was not involved in the patient management Natalia Torres NP ([place]) Jan 16, 2017 08:53
--- NOTE | 2017-01-17 01:38 | Discharge Summary 2 SIG ---
DATE OF ADMISSION: 01/10/2017 DATE OF DISCHARGE: 01/14/2017 REASON FOR ADMISSION AND HISTORY OF PRESENT ILLNESS: This is 61 years old male presented to emergency room with shortness of breath for one night. The patient verbalized that he could not catch his breath. He was sleeping with multiple pillows. He denied wheezing, chest pain, fever, chills, or cough. The patient has a known history of CHF, cardiomyopathy, hypertension, permanent atrial fibrillation, and COPD. The patient had a recent admission for COPD and CHF exacerbation. The patient is taking anticoagulation as Eliquis and recently started on Cardizem. Workup in the emergency room revealed atrial fibrillation with heart rate of 114. Chest x-ray revealed no acute cardiopulmonary disease. No consolidation. No effusion. Lungs with rales and crackles. The patient is afebrile and normotensive. Chest x-ray, no pneumonia. Elevated proBNP of 7480. EKG revealed no ischemic changes. The patient took Lasix at home earlier that morning. No additional Lasix was given. Pulmonary status improved with temporary BiPAP placed in the emergency department. The patient admitted for further management. Heart rate was 104 after atrial fibrillation. ADMITTING DIAGNOSES: 1. Acute congestive heart failure. 2. Chronic atrial fibrillation. 3. Shortness of breath. 4. Chronic obstructive pulmonary disease. HOSPITAL COURSE: The patient admitted. Cardiology consult was requested. The results of recent echocardiogram revealed ejection fraction 25% to 30%, global left ventricular hypokinesis, severe by atrial enlargement, moderate mitral regurgitation, moderate tricuspid regurgitation, right ventricular systolic pressure of 50, consistent with moderate pulmonary hypertension. Coal Dumping Equipment Operator followed the patient. Coal Dumping Equipment Operator recommended and discussed with the patient about sodium and fluid restriction. Dose of diuretic was increased. Renal parameters, intake and output, electrolytes were closely monitored. Supplemental oxygen and pulmonary toilet provided as needed. The patient started on IV steroids, which were tapered and changed to oral prior to discharge. Theophylline continued. Antitussive provided as needed. Chest x-ray revealed no acute cardiopulmonary pathology, but consistent with chronic changes. Sputum culture was negative. Troponin was negative. ProBNP down to 1421 prior to discharge. Urine toxicology screen was positive for amphetamines, so boiler room helper recommended treatment with medical treatment for CHF with MYLA-inhibitor and consider beta-azael, but at this time not given. Continue Lasix, home dose was increased. The patient has a permanent atrial fibrillation, rate controlled with Cardizem, Eliquis for anticoagulation, no evidence of rapid ventricular response on telemetry. On the day prior to discharge, the patient developed leukocytosis, leukocytosis likely reactive secondary to steroids. The steroids tapered and changed to oral. No fever. Chest x-ray clear. Urinalysis negative. The patient was stable for discharge. DISCHARGE DIAGNOSES: 1. Acute on chronic systolic congestive heart failure exacerbation. 2. Permanent atrial fibrillation. 3. Hypertension. 4. Ischemic cardiomyopathy. 5. History of prostate cancer. 6. Acute chronic obstructive pulmonary disease exacerbation. 7. Pulmonary hypertension. 8. Moderate mitral regurgitation and tricuspid regurgitation. 9. Amphetamine abuse. DISCHARGE MEDICATIONS: See medication reconciliation list. DISCHARGE INSTRUCTIONS: The patient to follow up with the primary medical doctor. The patient needs to follow up with the boiler room helper for his health insurance plan that was explained to him explicitly by boiler room helper in the hospital. Lisa Scruggs M.D. I have been assigned to dictate discharge summary on this account and I was not involved in the patient's management. Natalia Lazogarnet healthLuis N.PAshwini DR: Renetta JOB#: [id number] CC:
== END 2017-01-14 13:46 | disposition home health service (06) | DRG 291 ==
LOC: ENRESERVTM → ENRESERVDT → EMR 14:10 → EDBEDREQSVC 14:59 → EDBEDREQ 14:59 → 2W 15:15 → EDBEDREQ 16:24 → 2E 01-13 13:48
DX: I50.23 Acute on chronic systolic (congestive) heart failure (principal); J96.00 Acute respiratory failure, unspecified whether with hypoxia or hypercapnia; J44.1 Chronic obstructive pulmonary disease with (acute) exacerbation; I42.2 Other hypertrophic cardiomyopathy; I10 Essential (primary) hypertension; Z85.46 Personal history of malignant neoplasm of prostate; I08.1 Rheumatic disorders of both mitral and tricuspid valves; I27.2 Other secondary pulmonary hypertension; I48.2 Chronic atrial fibrillation; I25.5 Ischemic cardiomyopathy; F15.10 Other stimulant abuse, uncomplicated; Z79.01 Long term (current) use of anticoagulants; Z92.3 Personal history of irradiation; Z87.891 Personal history of nicotine dependence; D72.829 Elevated white blood cell count, unspecified; T38.0X5A Adverse effect of glucocorticoids and synthetic analogues, initial encounter
CPT/HCPCS: 36415; 71010; 80053; 80300; 81003; 82248; 82550; 82553; 82962; 83880; 84484; 85007; 85025; 87070; 87081; 87205; 93005; 94640; 94664; 94760; J1815

== ENCOUNTER 2017-02-25 22:56 | Emergency (ER) | payer OTHER ==
[~2017-02-25] VITALS: Ht 185.4 cm; Wt 81.6 kg
[~2017-02-25 22:56] MED LIST changes: +ELIQUIS2.5 MG ORAL; +FUROSEMIDE40 MG ORAL; +MEDROL4 MG ORAL
[2017-02-25] MEDS ORDERED: HYDROmorphone 1mg/ml Carpuject IVP ONE (23:15)
[2017-02-25 23:39] LABS: APPEARANCE,URINE CLEAR; KETONES,URINE NEGATIVE (NEGATIVE); LEUKOCYTE ESTERASE ,URINE NEGATIVE (NEGATIVE); NITRITE,URINE NEGATIVE (NEGATIVE); PH,URINE 6 (4.5-8.0); UROBILINOGEN,URINE NORMAL MG/DL (0.0-1.0)
[2017-02-25 23:44] LABS: BASOPHILS % (AUTO) 0.8 % (0.0-2.0); EOSINOPHILS % (AUTO) 1.6 % (0.0-3.0); LYMPHOCYTES % (AUTO) 21.2 % (20.0-45.0); MEAN CORPUSCULAR HEMOGLOBIN 34.6 PG (27.0-31.0); MEAN CORPUSCULAR HGB CONC 34.1 G/DL (32.0-36.0); MEAN CORPUSCULAR VOLUME 102 FL (80-99); MEAN PLATELET VOLUME 6.5 FL (6.5-10.1); MONOCYTES % (AUTO) 9.7 % (1.0-10.0); NEUTROPHILS % (AUTO) 66.6 % (45.0-75.0); PLATELET COUNT 191 K/UL (150-450); RED BLOOD COUNT 5.04 M/UL (4.70-6.10); RED CELL DISTRIBUTION WIDTH 12.4 % (11.6-14.8); WHITE BLOOD COUNT 9.6 K/UL (4.8-10.8)
[2017-02-25 23:46] LABS: PROTEIN,URINE NEGATIVE (NEGATIVE)
[2017-02-25 23:57] LABS: ALANINE AMINOTRANSFERASE 25 U/L (3-41); ALBUMIN/GLOBULIN RATIO 1.5 (1.0-2.7); ANION GAP 16 (5-15); ASPARTATE AMINO TRANSFERASE 32 U/L (5-40); CALCIUM 9.9 mg/dL (8.6-10.2); CARBON DIOXIDE 24 mEQ/L (20-30); CHLORIDE 100 mEQ/L (98-107); CREATININE 1.1 mg/dL (0.7-1.2); GLOMERULAR FILTRATION RATE > 60 mL/min (>60); HEMOLYSIS 6; LIPASE 34 U/L (< 60); POTASSIUM 4.1 mEQ/L (3.4-4.9); SODIUM 140 mEQ/L (135-145); TOTAL PROTEIN 7.1 g/dL (6.6-8.7)
--- NOTE | 2017-02-26 01:11 | Emergency Room Report ---
History of Present Illness General Chief Complaint: Abdominal Pain Source: Patient, Family Member Present Illness HPI Is a 61-year-old male with multiple medical problem. He presents chief complaint of protracted vomiting. Onset for the last few hours. This occurred after eating at a fast food restaurant. His at the same food without a problem. Epigastric pain and going to his back. Multiple episode vomiting. Vomiting is nonbloody nonbilious. No chest pain. No fever or chills. No diarrhea. Pain is crampy and sharp in nature. Allergies: Coded Allergies: No Known Allergies (Unverified , 07/15/16) Patient History Past Medical History: see triage record, old chart reviewed, HTN, CAD, COPD Past Surgical History: other Pertinent Family History: none Social History: Denies: drug use Immunizations: other Reviewed Nursing Documentation: PMH: Agreed, PSxH: Agreed Nursing Documentation-PMH Hx Cardiac Problems: Yes Hx Hypertension: Yes Hx Pacemaker: No Hx Asthma: Yes Hx COPD: Yes Hx Cancer: Yes Hx Gastrointestinal Problems: Yes Hx Neurological Problems: No Review of Systems Eye: Denies: blurred vision, eye pain ENT: Denies: ear pain, nose congestion, throat swelling Respiratory: Denies: cough, shortness of breath Cardiovascular: Denies: chest pain, palpitations Gastrointestinal: Reports: abdominal pain, nausea, vomiting, Denies: diarrhea Musculoskeletal: Denies: back pain, joint pain Skin: Denies: rash Neurological: Denies: headache, numbness Endocrine: Denies: increased thirst, increased urine Hematologic/Lymphatic: Denies: easy bruising All Other Systems: negative except mentioned in HPI Physical Exam Vital Signs Date Time Temp Pulse Resp B/P Pulse Ox O2 Delivery O2 Flow Rate FiO2 02/25/17 22:59 98.1 93 20 148/98 94 Room Air vitals with mild hypertension Sp02 EP Interpretation: reviewed, normal General Appearance: well appearing, no apparent distress, alert Head: normocephalic, atraumatic Eyes: bilateral eye EOMI, bilateral eye PERRL ENT: hearing grossly normal, normal pharynx Neck: full range of motion, supple, no meningismus Respiratory: chest non-tender, lungs clear, normal breath sounds Cardiovascular #1: regular rate, rhythm, no murmur Gastrointestinal: normal bowel sounds, no mass, no organomegaly, no bruit, non- distended, abnormal bowel sounds - Hyper active bowel sounds, tenderness - Mild Musculoskeletal: back normal, gait/station normal, normal range of motion Neurologic: alert, oriented x3 Psychiatric: mood/affect normal Skin: warm/dry Medical Decision Making Diagnostic Impression: Primary Impression: Renal infarct ER Course Patient presents with vomiting and mostly back pain. After pain medication his pain is localized to the left mid back area. Labs unremarkable. CT scan showed renal infarct. There is no evidence of arrhythmia. EKG is unremarkable. He is currently taking Elequis for anticoagulation. Laboratory Tests Test 02/25/17 23:11 02/25/17 23:25 Urine Color Yellow Urine Appearance Clear Urine pH 6 (4.5-8.0) Urine Specific [place] 1.020 (1.005-1.035) Urine Protein Negative (NEGATIVE) Urine Glucose (UA) Negative (NEGATIVE) Urine Ketones Negative (NEGATIVE) Urine Occult Blood Negative (NEGATIVE) Urine Nitrite Negative (NEGATIVE) Urine Bilirubin Negative (NEGATIVE) Urine Urobilinogen Normal MG/DL (0.0-1.0) Urine Leukocyte Esterase Negative (NEGATIVE) White Blood Count 9.6 K/UL (4.8-10.8) Red Blood Count 5.04 M/UL (4.70-6.10) Hemoglobin 17.5 G/DL (14.2-18.0) Hematocrit 51.1 % (42.0-52.0) Mean Corpuscular Volume 102 FL (80-99) H Mean Corpuscular Hemoglobin 34.6 PG (27.0-31.0) H Mean Corpuscular Hemoglobin Concent 34.1 G/DL (32.0-36.0) Red Cell Distribution Width 12.4 % (11.6-14.8) Platelet Count 191 K/UL (150-450) Mean Platelet Volume 6.5 FL (6.5-10.1) Neutrophils (%) (Auto) 66.6 % (45.0-75.0) Lymphocytes (%) (Auto) 21.2 % (20.0-45.0) Monocytes (%) (Auto) 9.7 % (1.0-10.0) Eosinophils (%) (Auto) 1.6 % (0.0-3.0) Basophils (%) (Auto) 0.8 % (0.0-2.0) Sodium Level 140 mEQ/L (135-145) Potassium Level 4.1 mEQ/L (3.4-4.9) Chloride Level 100 mEQ/L (98-107) Carbon Dioxide Level 24 mEQ/L (20-30) Anion Gap 16 (5-15) H Blood Urea Nitrogen 17 mg/dL (7-23) Creatinine 1.1 mg/dL (0.7-1.2) Estimat Glomerular Filtration Rate > 60 mL/min (>60) Glucose Level 118 mg/dL (74-106) H Calcium Level 9.9 mg/dL (8.6-10.2) Total Bilirubin 0.9 mg/dL (0.0-1.2) Aspartate Amino Transf (AST/SGOT) 32 U/L (5-40) Alanine Aminotransferase (ALT/SGPT) 25 U/L (3-41) Alkaline Phosphatase 83 U/L (40-129) Total Protein 7.1 g/dL (6.6-8.7) Albumin 4.3 g/dL (3.5-5.2) Globulin 2.8 g/dL Albumin/Globulin Ratio 1.5 (1.0-2.7) Lipase 34 U/L (< 60) Laboratory Tests Test 02/25/17 23:11 02/25/17 23:25 Urine Color Yellow Urine Appearance Clear Urine pH 6 (4.5-8.0) Urine Specific [place] 1.020 (1.005-1.035) Urine Protein Negative (NEGATIVE) Urine Glucose (UA) Negative (NEGATIVE) Urine Ketones Negative (NEGATIVE) Urine Occult Blood Negative (NEGATIVE) Urine Nitrite Negative (NEGATIVE) Urine Bilirubin Negative (NEGATIVE) Urine Urobilinogen Normal MG/DL (0.0-1.0) Urine Leukocyte Esterase Negative (NEGATIVE) White Blood Count 9.6 K/UL (4.8-10.8) Red Blood Count 5.04 M/UL (4.70-6.10) Hemoglobin 17.5 G/DL (14.2-18.0) Hematocrit 51.1 % (42.0-52.0) Mean Corpuscular Volume 102 FL (80-99) H Mean Corpuscular Hemoglobin 34.6 PG (27.0-31.0) H Mean Corpuscular Hemoglobin Concent 34.1 G/DL (32.0-36.0) Red Cell Distribution Width 12.4 % (11.6-14.8) Platelet Count 191 K/UL (150-450) Mean Platelet Volume 6.5 FL (6.5-10.1) Neutrophils (%) (Auto) 66.6 % (45.0-75.0) Lymphocytes (%) (Auto) 21.2 % (20.0-45.0) Monocytes (%) (Auto) 9.7 % (1.0-10.0) Eosinophils (%) (Auto) 1.6 % (0.0-3.0) Basophils (%) (Auto) 0.8 % (0.0-2.0) Sodium Level 140 mEQ/L (135-145) Potassium Level 4.1 mEQ/L (3.4-4.9) Chloride Level 100 mEQ/L (98-107) Carbon Dioxide Level 24 mEQ/L (20-30) Anion Gap 16 (5-15) H Blood Urea Nitrogen 17 mg/dL (7-23) Creatinine 1.1 mg/dL (0.7-1.2) Estimat Glomerular Filtration Rate > 60 mL/min (>60) Glucose Level 118 mg/dL (74-106) H Calcium Level 9.9 mg/dL (8.6-10.2) Total Bilirubin 0.9 mg/dL (0.0-1.2) Aspartate Amino Transf (AST/SGOT) 32 U/L (5-40) Alanine Aminotransferase (ALT/SGPT) 25 U/L (3-41) Alkaline Phosphatase 83 U/L (40-129) Total Protein 7.1 g/dL (6.6-8.7) Albumin 4.3 g/dL (3.5-5.2) Globulin 2.8 g/dL Albumin/Globulin Ratio 1.5 (1.0-2.7) Lipase 34 U/L (< 60) Lab Results Impression labs unremarkable EKG Diagnostic Results Rate: normal Rhythm: NSR ST Segments: no acute changes Rhythm Strip Diag. Results EP Interpretation: yes Rate: 82 Rhythm: NSR, no PVC's, no ectopy CT/MRI/US Diagnostic Results CT/MRI/US Diagnostic Results : Imaging Test Ordered: CT abdomen and pelvis Impression CT abdomen and pelvis read by radiologist. Multiple heterogeneous left renal hypodensity which may represent renal infarcts versus pyelonephritis. Last Vital Signs Date Time Temp Pulse Resp B/P Pulse Ox O2 Delivery O2 Flow Rate FiO2 02/25/17 22:59 98.1 93 20 148/98 94 Room Air Status: improved Disposition: ADMITTED INPATIENT Condition: Serious Referrals: [facility]ERR[facility] (PCP) DAVID FOSTER M.D. Feb 26, 2017 01:11
[2017-02-26] MEDS ORDERED: HYDROmorphone 1mg/ml Carpuject IVP ONE (01:30)
[2017-02-26 01:38] LABS: INR 1.1 (0.9-1.1); PROTHROMBIN TIME 11.4 SEC (9.30-11.50)
[2017-02-26 01:47] LABS: TROPONIN I < 0.30 ng/mL (<=0.30)
[2017-02-26 03:22] VITALS: BP 135/88
--- NOTE | 2017-02-26 09:20 | Diagnostic Imaging Report ---
Indication: Abdominal pain Technique: Continuous helical transaxial imaging of the abdomen and pelvis was obtained from the lung bases to the pubic symphysis during intravenous contrast administration. Coronal 2-D reformats were also obtained. Study obtained in a Siemens sensation [address] Total Dose length Product (DLP): [address] Dose Index Volume (CTDIvol): 17 mGy Comparison: None Findings: Posterior basilar atelectasis demonstrated. Small hiatal hernia and generalized cardiomegaly is present. There are fairly well-circumscribed areas of cortical non-enhancement involving the left kidney, nonspecific in nature. These could be infarcts. Acuity of the findings is unknown. There is minimal perinephric stranding if at all. There is suggestion of some volume loss along the lateral aspect of the left kidney. The right kidney is unremarkable. In addition there are at least a few cysts within the left kidney suspected. Should note that the phase of renal enhancement is suboptimal as examination was obtained during arterial phase. Please correlate clinically. Gallstones versus sludge suspected. Arterial vascular calcifications are noted. No gross abnormalities of the spleen, liver or pancreas identified. There is no adrenal mass. There is no free fluid or free air. Urinary bladder is unremarkable in appearance. There is no evidence of bowel obstruction. The appendix is partially history back appendix is not displacing. Diverticula noted throughout the colon. There is narrowing of intervertebral discs and accompanying endplate osteophyte formation. Hypertrophied facet joints also demonstrated.. Impression: Abnormal left kidney. One consideration is renal infarcts, acuity of which is not known. Infection was also suggested on the preliminary reading. This is less likely based on the images. Please correlate clinically. Atherosclerotic vascular disease Cardiomegaly Small hiatal hernia Few cysts within the left kidney also noted. Diverticulosis of colon. Spondylosis [facility] has communicated the preliminary results to the Emergency Department. Their findings are largely concordant with this report. The CT scanner at [facility] is accredited by the [employer] and the scans are performed using dose optimization techniques as appropriate to a performed exam including Automatic Exposure control.
--- NOTE | 2017-02-26 13:08 | Cardiology Report ---
APPROVED REPORT EKG Measurement Heart [id number] Atrial fibrillation Moderate voltage criteria for LVH, may be normal variant T wave abnormality, consider inferolateral ischemia Prolonged QT Abnormal ECG
== END 2017-02-26 03:27 | disposition left against medical advice (07) ==
LOC: EMR 23:38
DX: N28.0 Ischemia and infarction of kidney (principal); I10 Essential (primary) hypertension; J44.9 Chronic obstructive pulmonary disease, unspecified; I25.10 Atherosclerotic heart disease of native coronary artery without angina pectoris; Z85.9 Personal history of malignant neoplasm, unspecified; M54.9 Dorsalgia, unspecified; Z79.01 Long term (current) use of anticoagulants
CPT/HCPCS: 36415; 74177; 80053; 81003; 83690; 84484; 85025; 85610; 85730; 93005; 96360; 96374; 96375; 99284; J1170; J2405; Q9967

== ENCOUNTER 2017-02-26 15:36 | Emergency (ER) | payer OTHER ==
[~2017-02-26] VITALS: Ht 185.4 cm; Wt 82.6 kg
[2017-02-26 15:52] VITALS: BP 134/100
[2017-02-26] MEDS ORDERED: Morphine Sulfate 4mg/ml Inj IVP ONE (16:00)
[2017-02-26 16:20] LABS: BASOPHILS % (AUTO) 1.3 % (0.0-2.0); EOSINOPHILS % (AUTO) 0.7 % (0.0-3.0); LYMPHOCYTES % (AUTO) 16.5 % (20.0-45.0); MEAN CORPUSCULAR HEMOGLOBIN 36.1 PG (27.0-31.0); MEAN CORPUSCULAR HGB CONC 35.1 G/DL (32.0-36.0); MEAN CORPUSCULAR VOLUME 103 FL (80-99); MEAN PLATELET VOLUME 6.6 FL (6.5-10.1); MONOCYTES % (AUTO) 10.7 % (1.0-10.0); NEUTROPHILS % (AUTO) 70.8 % (45.0-75.0); PLATELET COUNT 167 K/UL (150-450); RED BLOOD COUNT 4.72 M/UL (4.70-6.10); RED CELL DISTRIBUTION WIDTH 12.2 % (11.6-14.8); WHITE BLOOD COUNT 10.3 K/UL (4.8-10.8)
[2017-02-26 16:35] LABS: INR 1.1 (0.9-1.1); PROTHROMBIN TIME 11.7 SEC (9.30-11.50)
[2017-02-26 16:39] LABS: TROPONIN I < 0.30 ng/mL (<=0.30)
[2017-02-26 16:54] LABS: APPEARANCE,URINE CLEAR; KETONES,URINE NEGATIVE (NEGATIVE); LEUKOCYTE ESTERASE ,URINE NEGATIVE (NEGATIVE); NITRITE,URINE NEGATIVE (NEGATIVE); PH,URINE 6 (4.5-8.0); PROTEIN,URINE 1+ (NEGATIVE); UROBILINOGEN,URINE NORMAL MG/DL (0.0-1.0)
[2017-02-26 16:58] LABS: ALANINE AMINOTRANSFERASE 38 U/L (3-41); ALBUMIN/GLOBULIN RATIO 1.2 (1.0-2.7); ANION GAP 19 (5-15); ASPARTATE AMINO TRANSFERASE 67 U/L (5-40); CALCIUM 9.6 mg/dL (8.6-10.2); CARBON DIOXIDE 21 mEQ/L (20-30); CHLORIDE 96 mEQ/L (98-107); CREATININE 1.1 mg/dL (0.7-1.2); GLOMERULAR FILTRATION RATE > 60 mL/min (>60); HEMOLYSIS 121; LIPASE 28 U/L (< 60); POTASSIUM 4.8 mEQ/L (3.4-4.9); SODIUM 136 mEQ/L (135-145); TOTAL PROTEIN 7.1 g/dL (6.6-8.7)
[2017-02-26 17:08] LABS: CKMB 3.1 ng/mL (< 6.7)
[2017-02-26 17:08] LABS: RBC,URINE 0-2 /HPF (0 - 0); WBC,URINE 0-2 /HPF (0 - 0)
[2017-02-26 17:21] LABS: BILIRUBIN,DIRECT 0.3 mg/dL (0.1-0.3)
[2017-02-26 18:00] VITALS: BP 138/103
--- NOTE | 2017-02-26 19:33 | Emergency Room Report ---
History of Present Illness General Chief Complaint: Abdominal Pain Source: Patient Present Illness HPI 61-year-old male presents ED complaining of abdominal pain and vomiting. Pain is sharp, left-sided, nonradiating. Notes nausea and vomiting. States symptoms started yesterday; patient was in the ER yesterday and had workup done. Patient was to be admitted but because of insurance patient was to be transferred. Patient did not want to be transferred and left AMA. Patient is back today because he needs to be admitted. Pain is continuing. Patient at bedside and states that she verified her insurance which said that patient could be admitted here. Patient has history of A. fib is on eliquis and metprolol. Denies chest pain or shortness of breath. No other aggravating or relieving factors. Denies any other associated symptom Allergies: Coded Allergies: No Known Allergies (Unverified , 07/15/16) Patient History Past Medical History: HTN, AFib, asthma, COPD Past Surgical History: none Pertinent Family History: none Social History: Denies: alcohol use, drug use, smoking Immunizations: UTD Reviewed Nursing Documentation: PMH: Agreed, PSxH: Agreed Nursing Documentation-PMH Past Medical History: No History, Except For Hx Cardiac Problems: Yes Hx Hypertension: Yes Hx Pacemaker: No Hx Asthma: Yes Hx COPD: Yes Hx Cancer: Yes - prostate Hx Gastrointestinal Problems: Yes Hx Neurological Problems: No Review of Systems All Other Systems: negative except mentioned in HPI Physical Exam Vital Signs Date Time Temp Pulse Resp B/P Pulse Ox O2 Delivery O2 Flow Rate FiO2 02/26/17 15:42 98.4 67 18 118/95 98 Room Air Sp02 EP Interpretation: reviewed, normal General Appearance: no apparent distress, alert, GCS 15, non-toxic Head: normocephalic, atraumatic Eyes: bilateral eye PERRL, bilateral eye normal inspection ENT: hearing grossly normal, normal pharynx, no angioedema, normal voice Neck: full range of motion, supple/symm/no masses Respiratory: chest non-tender, lungs clear, normal breath sounds, speaking full sentences Cardiovascular #1: no edema, tachycardia Cardiovascular #2: 2+ carotid (R), 2+ carotid (L), 2+ radial (R), 2+ radial (L) , 2+ dorsalis pedis (R), 2+ dorsalis pedis (L) Gastrointestinal: normal bowel sounds, soft, non-distended, no guarding, no rebound, tenderness - L sided Rectal: deferred Genitourinary: normal inspection, no CVA tenderness Musculoskeletal: back normal, gait/station normal, normal range of motion, non- tender Neurologic: alert, oriented x3, responsive, motor strength/tone normal, sensory intact, speech normal Psychiatric: judgement/insight normal, memory normal, mood/affect normal, no suicidal/homicidal ideation Reflexes: 3+ bicep (R), 3+ bicep (L), 3+ tricep (R), 3+ tricep (L), 3+ knee (R) , 3+ knee (L) Skin: normal color, no rash, warm/dry, well hydrated Lymphatic: no adenopathy Medical Decision Making Diagnostic Impression: Primary Impression: Abdominal pain Qualified Codes: R10.9 - Unspecified abdominal pain Additional Impression: Atrial fibrillation with rapid ventricular response ER Course Hospital Course 61-year-old male presents to ED complaining of abdominal pain and vomiting. Also tachycardic. History of A. fib Differential diagnoses include: MN/unstable angina, contusion, muscle strain, PTX, rib fracture, pneumonia, Clinical course Patient placed on stretcher. on conveyor monitor which shows A. fib with RVR. Patient cardiovert on his own and therefore no medication given After initial history and physical I ordered labs, EKG, chest x-ray labs reviewed- no leukocytosis, hemoglobin/hematocrit ok, electrolytes okay, troponins negative EKG - Afib with RVR interpreted by me CT done yesterday showed hypoattenuation and left kidney which could be suggestive of renal infarct. Creatinine okay Because of insurance patient will be transferred. Registration explained to the patient and family that his insurance glass in to be seen in an ER for evaluation however for admission patient will likely be transferred to a contracted facility. Patient and family understand I. I feel this is a highly complex case requiring extensive working including EKG/Rhythm strip, Xray/CT/US, Blood/urine lab work, repeat exams while in ED, and administration of strong opiates/narcotics for pain control, admission to hospital or close patient follow up. Diagnosis - abdominal pain, afib with RVR Transferred in serious condition Labs Test 02/26/17 16:00 02/26/17 16:15 White Blood Count 10.3 K/UL (4.8-10.8) Red Blood Count 4.72 M/UL (4.70-6.10) Hemoglobin 17.0 G/DL (14.2-18.0) Hematocrit 48.6 % (42.0-52.0) Mean Corpuscular Volume 103 FL (80-99) Mean Corpuscular Hemoglobin 36.1 PG (27.0-31.0) Mean Corpuscular Hemoglobin Concent 35.1 G/DL (32.0-36.0) Red Cell Distribution Width 12.2 % (11.6-14.8) Platelet Count 167 K/UL (150-450) Mean Platelet Volume 6.6 FL (6.5-10.1) Neutrophils (%) (Auto) 70.8 % (45.0-75.0) Lymphocytes (%) (Auto) 16.5 % (20.0-45.0) Monocytes (%) (Auto) 10.7 % (1.0-10.0) Eosinophils (%) (Auto) 0.7 % (0.0-3.0) Basophils (%) (Auto) 1.3 % (0.0-2.0) Prothrombin Time 11.7 SEC (9.30-11.50) Prothromb Time International Ratio 1.1 (0.9-1.1) Activated Partial Thromboplast Time 29 SEC (23-33) Sodium Level 136 mEQ/L (135-145) Potassium Level 4.8 mEQ/L (3.4-4.9) Chloride Level 96 mEQ/L (98-107) Carbon Dioxide Level 21 mEQ/L (20-30) Anion Gap 19 (5-15) Blood Urea Nitrogen 13 mg/dL (7-23) Creatinine 1.1 mg/dL (0.7-1.2) Estimat Glomerular Filtration Rate > 60 mL/min (>60) Glucose Level 91 mg/dL (74-106) Calcium Level 9.6 mg/dL (8.6-10.2) Total Bilirubin 1.6 mg/dL (0.0-1.2) Direct Bilirubin 0.3 mg/dL (0.1-0.3) Aspartate Amino Transf (AST/SGOT) 67 U/L (5-40) Alanine Aminotransferase (ALT/SGPT) 38 U/L (3-41) Alkaline Phosphatase 73 U/L (40-129) Total Creatine Kinase 115 U/L (38-174) Creatine Kinase MB 3.1 ng/mL (< 6.7) Creatine Kinase MB Relative Index 2.6 Troponin I < 0.30 ng/mL (<=0.30) Total Protein 7.1 g/dL (6.6-8.7) Albumin 3.9 g/dL (3.5-5.2) Globulin 3.2 g/dL Albumin/Globulin Ratio 1.2 (1.0-2.7) Lipase 28 U/L (< 60) Urine Color Pale yellow Urine Appearance Clear Urine pH 6 (4.5-8.0) Urine Specific [place] 1.010 (1.005-1.035) Urine Protein 1+ (NEGATIVE) Urine Glucose (UA) Negative (NEGATIVE) Urine Ketones Negative (NEGATIVE) Urine Occult Blood Negative (NEGATIVE) Urine Nitrite Negative (NEGATIVE) Urine Bilirubin Negative (NEGATIVE) Urine Urobilinogen Normal MG/DL (0.0-1.0) Urine Leukocyte Esterase Negative (NEGATIVE) Urine RBC 0-2 /HPF (0 - 0) Urine WBC 0-2 /HPF (0 - 0) Urine Squamous Epithelial Cells None /LPF (NONE/OCC) Urine Bacteria None /HPF (NONE) EKG Diagnostic Results Rate: tachycardiac Rhythm: other - afib wtih RVR ST Segments: no acute changes ASA given to the pt in ED: No Rhythm Strip Diag. Results EP Interpretation: yes Rhythm: no PVC's, no ectopy Last Vital Signs Date Time Temp Pulse Resp B/P Pulse Ox O2 Delivery O2 Flow Rate FiO2 02/26/17 15:52 23 134/100 97 Room Air 02/26/17 15:42 98.4 67 Status: improved Disposition: XFER SHT-TRM HOSP Condition: Serious Referrals: [facility]ERR[facility] (PCP) CATALINO HARRIS M.D. Feb 26, 2017 19:33
[2017-02-26 19:37] VITALS: BP 150/107
[2017-02-26] MEDS ORDERED: Diltiazem 25mg/5ml IV ONE (19:45)
[2017-02-26 20:23] VITALS: BP 138/97
== END 2017-02-26 20:28 | disposition short-term general hospital (02) ==
LOC: EMR 16:15
DX: R10.9 Unspecified abdominal pain (principal); I48.91 Unspecified atrial fibrillation; R00.0 Tachycardia, unspecified; I10 Essential (primary) hypertension; J44.9 Chronic obstructive pulmonary disease, unspecified; Z85.46 Personal history of malignant neoplasm of prostate; R11.2 Nausea with vomiting, unspecified
CPT/HCPCS: 36415; 80053; 81003; 82248; 82550; 82553; 83690; 84484; 85025; 85610; 85730; 93005; 96360; 96374; 96375; 99285; J2270; J2405